=== PATIENT | male | born 1955 | race Caucasian/White ===

== ENCOUNTER 2019-03-20 17:56 | Emergency (ER) | payer OTHER, BC ==
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
[2019-03-20 19:54] VITALS: BP 135/79; PULSE 64; RESP 18; TEMP 97.9
== END 2019-03-20 19:54 | disposition home or self-care (01) ==
LOC: EC 17:56
DX: Z04.1 Encounter for examination and observation following transport accident (principal); Z91.018 Allergy to other foods
CPT/HCPCS: 70450; 71046; 72125; 99285

== ENCOUNTER 2019-06-03 21:15 | Emergency (ER) | payer BC ==
[2019-06-03 21:19] VITALS: TEMP 98.6
[2019-06-03 21:42] LABS: Basophils # (A) 0.1 k/uL (0-0.2); Basophils % (A) 1 %; Eosinophils # (A) 0.2 k/uL (0-0.7); Eosinophils % (A) 2 %; HCT 45.1 % (39.0-53.0); HGB 16.6 gm/dL (13.0-17.5); Lymphocytes # (A) 3.3 k/uL (1.0-4.8); Lymphocytes % (A) 40 %; MCH 33.9 pg (25.0-35.0); MCHC 36.7 g/dL (31.0-37.0); MCV 92.2 fL (80.0-100.0); Mean Platelet Volume 6.6; Monocytes # (A) 0.6 k/uL (0-1.0); Monocytes % (A) 7 %; Neutrophils # (A) 3.9 k/uL (1.3-7.7); Neutrophils % (A) 47 %; Platelet Count 258 k/uL (150-450); RBC 4.89 m/uL (4.30-5.90); RDW 12.1 % (11.5-15.5); WBC 8.4 k/uL (3.8-10.6)
[2019-06-03 21:50] LABS: Partial Thromboplastin Time 24.2 sec (22.0-30.0); Prothrombin Time 10.3 sec (9.0-12.0)
[2019-06-03 21:53] LABS: Albumin 4.6 g/dL (3.5-5.0); Calcium 10.1 mg/dL (8.4-10.2); Potassium 4.6 mmol/L (3.5-5.1); Total Bilirubin 0.4 mg/dL (0.2-1.3); Total Protein 7.6 g/dL (6.3-8.2)
--- NOTE | 2019-06-03 21:57 | XR ---
EXAMINATION TYPE: XR chest 2V DATE OF EXAM: 06/03/2019 COMPARISON: 03/20/2019 INDICATION: Dysrhythmia TECHNIQUE: Frontal and lateral views of the chest are obtained. FINDINGS: The heart size is normal. The pulmonary vasculature is normal. The lungs are clear. IMPRESSION: 1. No acute pulmonary process.
--- NOTE | 2019-06-03 23:26 | ED ---
General Adult HPI - General Source: patient, RN notes reviewed, old records reviewed Mode of arrival: wheelchair Limitations: no limitations <Gideon Angela - Last Filed: 06/04/19 22:25> <Brian Garnica - Last Filed: 06/06/19 08:16> - General Chief complaint: Arrhythmia/Palpitations Stated complaint: Palpitations Time Seen by Provider: 06/03/19 21:21 - History of Present Illness Initial comments: 63-year-old male patient with the chief complaint of heart palpitations. Patient reports that approximately one hour prior to presentation feels that his heart was pounding, he began sweating. Patient denies any chest pain. Patient reports that he loses possibly because he was exposed to tomato plant leads whic h often causes him to get flushed and hot. Patient reports the palpitations have resolved, however does still feel warm. Denies other complaints. Systemic: Pt denies fatigue, fever/chills, rash. Pt denies weakness, night sweats, weight loss. Neuro: Pt denies headache, visual disturbances, syncope or pre-syncope. HEENT: Pt denies ocular discharge or irritation, otalgia, rhinorrhea, pharyngitis or notable lymphadenopathy. Cardiopulmonary: Pt denies chest pain, SOB, heart palpitations, dyspnea on exertion. Abdominal/GI: Pt denies abdominal pain, n/v/d. : Pt denies dysuria, burning w/ urination, frequency/urgency. Denies new onset urinary or bowel incontinence. MSK: Pt denies myalgia, loss of strength or function in extremities. Neuro: Pt denies new onset weakness, paresthesias. (Gideon Angela) - Related Data Home Medications Medication Instructions Recorded Confirmed Aspirin EC [Ecotrin Low Dose] 81 mg PO DAILY 06/03/19 06/03/19 Atorvastatin [Lipitor] 10 mg PO HS 06/03/19 06/03/19 Baclofen 5 mg PO BID PRN 06/03/19 06/03/19 Cetirizine HCl [Zyrtec] 10 mg PO DAILY 06/03/19 06/03/19 Lisinopril [Zestril] 40 mg PO BID 06/03/19 06/03/19 Memantine [Namenda] 10 mg PO BID 06/03/19 06/03/19 amLODIPine [Norvasc] 5 mg PO DAILY 06/03/19 06/03/19 metFORMIN HCL [Glucophage] 500 mg PO BID 06/03/19 06/03/19 Allergies Allergy/AdvReac Type Severity Reaction Status Date / Time Yeast AdvReac Nausea & Verified 06/03/19 21:44 Vomiting pineapple AdvReac Nausea & Uncoded 06/03/19 21:19 Vomiting Review of Systems ROS Other: All systems not noted in ROS Statement are negative. <Gideon Angela - Last Filed: 06/04/19 22:25> ROS Other: All systems not noted in ROS Statement are negative. <Brian Garnica - Last Filed: 06/06/19 08:16> ROS Statement: Those systems with pertinent positive or pertinent negative responses have been documented in the HPI. Past Medical History Past Medical History: Hyperlipidemia, Hypertension History of Any Multi-Drug Resistant Organisms: None Reported Past Surgical History: No Surgical Hx Reported Past Psychological History: No Psychological Hx Reported Smoking Status: Never smoker Past Alcohol Use History: Occasional Past Drug Use History: None Reported <Gideon Angela - Last Filed: 06/04/19 22:25> General Exam Limitations: no limitations <Gideon Angela - Last Filed: 06/04/19 22:25> - General Exam Comments Initial Comments: Constitutional: NAD, AOX3, Pt has pleasant affect. HEENT: NC/AT, trachea midline, neck supple, no lymphadenopathy. Posterior pharynx non erythematous, without exudates. External ears appear normal, without discharge. Mucous membranes moist. Eyes PERRLA, EOM intact. There is no scleral icterus. No pallor noted. Cardiopulmonary: RRR, no murmurs, rubs or gallops, no JVD noted. Lungs CTAB in anterior and posterior tran. No peripheral edema. Abdominal exam: Abdomen soft and non-distended. Abdomen non-tender to palpation in all 4 quadrants. Bowel sounds active in LLQ. No hepatosplenomegaly. No ecchymosis Neuro: CN II-XII grossly intact. No nuchal rigidity. No raccon eyes, no navarro sign, no hemotympanum. No cervical spinal tenderness. MSK: No posterior calf tenderness bilaterally, homans sign negative bilaterally. Posterior tibialis and radial pulse +2 bilaterally. Sensation intact in upper and lower extremities. Full active ROM in upper and lower extremities, 5/5 stregnth. (Gideon Angela) Course Vital Signs 06/03/19 06/03/19 06/04/19 21:17 21:35 00:19 Temperature 98.6 F Pulse Rate 80 69 Pulse Rate [ 76 Health Benefits Specialist ] Respiratory 18 16 Rate Blood Pressure 152/82 142/80 O2 Sat by Pulse 97 96 Oximetry 06/04/19 01:46 Temperature Pulse Rate 65 Pulse Rate [ Health Benefits Specialist ] Respiratory 18 Rate Blood Pressure 144/85 O2 Sat by Pulse 96 Oximetry Medical Decision Making - Lab Data Result diagrams: 06/03/19 21:30 06/03/19 21:30 - EKG Data -: EKG Interpreted by Me (and Dr. Day) <Gideon Angela - Last Filed: 06/04/19 22:25> - Lab Data Result diagrams: 06/03/19 21:30 06/03/19 21:30 <Brian Garnica - Last Filed: 06/06/19 08:16> - Medical Decision Making 63-year-old male patient with the chief complaint of heart palpitations. Patient reports that approximately one hour prior to presentation feels that his heart was pounding, he began sweating. Patient denies any chest pain. Patient reports that he loses possibly because he was exposed to tomato plant leads which often causes him to get flushed and hot. Patient reports the palpitations have resolved, however does still feel warm. Denies other complaints. Patient was sent still, physical exampathology. EKG not concerning for acute ischemia. Laboratory investigations revealed mildly decreased kidney function, otherwise noncompressive. Troponin negative. Patient signout to attending physician Dr. Day pending repeat troponin. Dr. Rodriguez repeat troponin was negative. Patient was discharged without incident. Will follow up with primary care provider and cardologist tomorrow. (Gideon Angela) I saw this patient in conjunction with the physician automotive parts counter assistant. I performed independent history and physical exam. Agree with case management. (Brian Garnica) - Lab Data Lab Results 06/03/19 06/03/19 06/03/19 Range/Units 21:30 21:30 21:30 WBC 8.4 (3.8-10.6) k/uL RBC 4.89 (4.30-5.90) m/uL Hgb 16.6 (13.0-17.5) gm/dL Hct 45.1 (39.0-53.0) % MCV 92.2 (80.0-100.0) fL MCH 33.9 (25.0-35.0) pg MCHC 36.7 (31.0-37.0) g/dL RDW 12.1 (11.5-15.5) % Plt Count 258 (150-450) k/uL Neutrophils % 47 % Lymphocytes % 40 % Monocytes % 7 % Eosinophils % 2 % Basophils % 1 % Neutrophils # 3.9 (1.3-7.7) k/uL Lymphocytes # 3.3 (1.0-4.8) k/uL Monocytes # 0.6 (0-1.0) k/uL Eosinophils # 0.2 (0-0.7) k/uL Basophils # 0.1 (0-0.2) k/uL PT 10.3 (9.0-12.0) sec INR 1.0 (<1.2) APTT 24.2 (22.0-30.0) sec Sodium 140 (137-145) mmol/L Potassium 4.6 (3.5-5.1) mmol/L Chloride 103 (98-107) mmol/L Carbon Dioxide 27 (22-30) mmol/L Anion Gap 10 mmol/L BUN 16 (9-20) mg/dL Creatinine 1.27 H (0.66-1.25) mg/dL Est GFR (CKD-EPI)AfAm 70 (>60 ml/min/1.73 sqM) Est GFR (CKD-EPI)NonAf 61 (>60 ml/min/1.73 sqM) Glucose 119 H (74-99) mg/dL Calcium 10.1 (8.4-10.2) mg/dL Magnesium 2.0 (1.6-2.3) mg/dL Total Bilirubin 0.4 (0.2-1.3) mg/dL AST 33 (17-59) U/L ALT 34 (21-72) U/L Alkaline Phosphatase 104 (38-126) U/L Troponin I (0.000-0.034) ng/mL Total Protein 7.6 (6.3-8.2) g/dL Albumin 4.6 (3.5-5.0) g/dL 06/03/19 06/04/19 Range/Units 21:30 00:30 WBC (3.8-10.6) k/uL RBC (4.30-5.90) m/uL Hgb (13.0-17.5) gm/dL Hct (39.0-53.0) % MCV (80.0-100.0) fL MCH (25.0-35.0) pg MCHC (31.0-37.0) g/dL RDW (11.5-15.5) % Plt Count (150-450) k/uL Neutrophils % % Lymphocytes % % Monocytes % % Eosinophils % % Basophils % % Neutrophils # (1.3-7.7) k/uL Lymphocytes # (1.0-4.8) k/uL Monocytes # (0-1.0) k/uL Eosinophils # (0-0.7) k/uL Basophils # (0-0.2) k/uL PT (9.0-12.0) sec INR (<1.2) APTT (22.0-30.0) sec Sodium (137-145) mmol/L Potassium (3.5-5.1) mmol/L Chloride (98-107) mmol/L Carbon Dioxide (22-30) mmol/L Anion Gap mmol/L BUN (9-20) mg/dL Creatinine (0.66-1.25) mg/dL Est GFR (CKD-EPI)AfAm (>60 ml/min/1.73 sqM) Est GFR (CKD-EPI)NonAf (>60 ml/min/1.73 sqM) Glucose (74-99) mg/dL Calcium (8.4-10.2) mg/dL Magnesium (1.6-2.3) mg/dL Total Bilirubin (0.2-1.3) mg/dL AST (17-59) U/L ALT (21-72) U/L Alkaline Phosphatase (38-126) U/L Troponin I <0.012 <0.012 (0.000-0.034) ng/mL Total Protein (6.3-8.2) g/dL Albumin (3.5-5.0) g/dL - EKG Data EKG Comments: Ventricular rate 76,. Full 148, QRS 82, QT/QTC 384 shows 432. Normotensive, anterior infarct age interment. Normal EKG. No concern for acute ischemia. (Gideon Angela) Disposition Is patient prescribed a controlled substance at d/c from ED?: No <Gideon Angela - Last Filed: 06/04/19 22:25> <Brian Garnica - Last Filed: 06/06/19 08:16> Clinical Impression: Heart palpitations Disposition: HOME SELF-CARE Condition: Stable Instructions (If sedation given, give patient instructions): Heart Palpitations (ED) Additional Instructions: Patient to adhere to previously discussed treatment plan and will take medication(s) as directed. Patient to follow up with PCP in 1-2 days. Patient to return to ED if symptoms do not improve. Follow up with primary care provider and oil well cable tool driller tomorrow, return to ER if condition worsens. Referrals: Cornel Reddy MD [Primary Care Provider] - 1-2 days Edil Mauricio MD [STAFF PHYSICIAN] - 1-2 days
[2019-06-04 01:47] VITALS: BP 144/85; PULSE 65; RESP 18
== END 2019-06-04 02:07 | disposition home or self-care (01) ==
LOC: EC 21:15
DX: R00.2 Palpitations (principal); R94.4 Abnormal results of kidney function studies; E78.5 Hyperlipidemia, unspecified; I10 Essential (primary) hypertension; Z79.82 Long term (current) use of aspirin; Z79.84 Long term (current) use of oral hypoglycemic drugs; Z79.899 Other long term (current) drug therapy; Z91.018 Allergy to other foods
CPT/HCPCS: 36415; 71046; 80053; 83735; 84484; 85025; 85610; 85730; 93005; 99285

== ENCOUNTER 2022-09-02 13:02 | Inpatient (IN) | payer MEDICARE, BC ==
--- NOTE | 2022-09-02 14:49 | XR ---
EXAMINATION TYPE: XR chest 1V DATE OF EXAM: 09/02/2022 COMPARISON: 06/03/2019 INDICATION: Presurgical clearance TECHNIQUE: Single frontal view of the chest is obtained. FINDINGS: The heart size is normal. The pulmonary vasculature is normal. The lungs are clear. Neck chain is present during the exam IMPRESSION: 1. No acute pulmonary process.
[2022-09-02] MEDS ORDERED: HYDROmorphone 0.5 MG/0.5 ML SYRINGE IVP STA ×2 (14:54→17:19)
--- NOTE | 2022-09-02 14:57 | XR ---
EXAMINATION TYPE: XR Hip RT and AP Pelvis DATE OF EXAM: 09/02/2022 2:52 PM INDICATION: Patient age:Male; 67 years old; Reason for study: fall rotation right leg unable to bear weight; COMPARISON: None. TECHNIQUE: The right hip was examined in the frontal and lateral projections and a AP pelvis. FINDINGS: Acute fracture of the right proximal femur with varus angulation. Multilevel disc degenerat ion changes. No additional fractures. Mild osteophyte formation acetabulum bilaterally. IMPRESSION: Right femoral neck fracture with varus angulation.
[2022-09-02 15:57] LABS: Basophils % (A) 0 %; Eosinophils # (A) 0.1 k/uL (0-0.7); Eosinophils % (A) 1 %; HCT 45.4 % (39.0-53.0); HGB 15.8 gm/dL (13.0-17.5); Lymphocytes # (A) 1.4 k/uL (1.0-4.8); Lymphocytes % (A) 10 %; MCH 32.7 pg (25.0-35.0); MCHC 34.8 g/dL (31.0-37.0); MCV 94.1 fL (80.0-100.0); Mean Platelet Volume 7.5; Monocytes # (A) 0.5 k/uL (0-1.0); Monocytes % (A) 4 %; Neutrophils % (A) 85 %; Platelet Count 234 k/uL (150-450); RBC 4.83 m/uL (4.30-5.90); WBC 14.1 k/uL (3.8-10.6)
[2022-09-02 16:09] LABS: ALT 34 U/L (4-49); AST 33 U/L (17-59); African American GFR (CKD) >90 (>60 ml/min/1.73 sqM); Albumin 4.7 g/dL (3.5-5.0); Alkaline Phosphatase 108 U/L (38-126); Anion Gap 10 mmol/L; Blood Urea Nitrogen 14 mg/dL (9-20); Calcium 9.8 mg/dL (8.4-10.2); Carbon Dioxide 24 mmol/L (22-30); Chloride 100 mmol/L (98-107); Glucose 152 mg/dL (74-99); Non-African American GFR(CKD) >90 (>60 ml/min/1.73 sqM); Potassium 4.3 mmol/L (3.5-5.1); Sodium 134 mmol/L (137-145); Total Bilirubin 0.8 mg/dL (0.2-1.3); Total Protein 7.5 g/dL (6.3-8.2)
[2022-09-02 16:23] LABS: Partial Thromboplastin Time 22.5 sec (22.0-30.0); Prothrombin Time 10.5 sec (9.0-12.0)
[2022-09-02] MEDS ORDERED: KETOROLAC 15 MG/ML 1 ML VIAL IVP STA (17:19)
--- NOTE | 2022-09-02 18:15 | P.HPOR ---
History of Present Illness H&P Date: 09/02/22 Chief Complaint: Right hip pain status post fall Patient is a pleasant 67-year-old male who seen and examined today at bedside in the emergency room. 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 He was at [employer] today and slipped on some ice outside door. Some people are able to help him up and he actually drove himself home in his truck. However he was not able to make it in the house and his brought him to the emergency room for evaluation. In the emergency room he is found have a right hip femoral neck displaced fracture. At the time of his fall he did not have any headaches or shortness of breath. He denies any loss of consciousness. He denied any problems with his hip or his leg in the past. He said he fell hard onto his right side and had sudden and new with pain at his right hip. He denies numbness tingling in his feet or toes. Denies any changes in bowel bladder function. Denies any neck pain or upper extremity pain. Denies abdominal pain or spine pain. 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 Review of Systems As stated per HPI. He denies any chest pain short of breath. Denies any neck pain headaches or loss consciousness. Denies abdominal pain or back pain. He admits to only pain at his right hip and severe pain whenever he tries to move the right leg. Denies numbness tingling in his right lower extremity. Denies changes in bowel bladder function. There is a left lower extremity pain. Denies any upper extremity pain. Past Medical History Past Medical History: Diabetes Mellitus, Hyperlipidemia, Hypertension History of Any Multi-Drug Resistant Organisms: None Reported Past Surgical History: No Surgical Hx Reported Past Psychological History: No Psychological Hx Reported Past Alcohol Use History: Occasional Past Drug Use History: None Reported Medications and Allergies Home Medications Medication Instructions Recorded Confirmed Type Aspirin EC [Ecotrin Low Dose] 81 mg PO HS 06/03/19 09/02/22 History Cetirizine HCl [Zyrtec] 10 mg PO DAILY 06/03/19 09/02/22 History amLODIPine [Norvasc] 5 mg PO DAILY 06/03/19 09/02/22 History lisinopriL [Zestril] 20 mg PO DAILY 06/03/19 09/02/22 History metFORMIN HCL [Glucophage] 500 mg PO QAM 06/03/19 09/02/22 History Ascorbic Acid [Vitamin C] 1,000 mg PO DAILY 09/02/22 09/02/22 History Atorvastatin [Lipitor] 20 mg PO HS 09/02/22 09/02/22 History Cholecalciferol (Vitamin D3) 75 mcg PO DAILY 09/02/22 09/02/22 History [Vitamin D3 (3000 Iu)] Multivitamins, Thera [Multivitamin 1 tab PO DAILY 09/02/22 09/02/22 History (formulary)] Zinc Sulfate 50 mg PO DAILY 09/02/22 09/02/22 History allopurinoL 300 mg PO DAILY 09/02/22 09/02/22 History metFORMIN HCL [Glucophage] 1,000 mg PO HS 09/02/22 09/02/22 History Allergies Allergy/AdvReac Type Severity Reaction Status Date / Time peanut Allergy Unknown Verified 09/02/22 18:01 Milk Containing Products AdvReac Nausea & Verified 09/02/22 18:01 [Dairy] Vomiting pineapple AdvReac Nausea & Verified 09/02/22 18:01 Vomiting Yeast AdvReac Nausea & Verified 09/02/22 18:01 Vomiting Physical Examination Osteopathic Statement: *. No significant issues noted on an osteopathic structural exam other than those noted in the History and Physical/Consult. - Hip right Gait: other (He is unable to get out of bed. He is unable to move his right leg without severe pain in his right hip. He is able to dorsiflex plantar flex at his ankle foot and toes.) Tenderness with palpation: anterior (There is no open wounds lacerations or abrasions. He has anterior and lateral pain in his hip. His thighs soft and nontender.) Pain with motion: internal rotation and hip flexion (There is pain with any motion of the right hip. He'll hold his hip flexed and externally rotated. Sensation is intact at his lower extremity throughout. Calf and thighs are soft nontender) Results - Labs Labs: Abnormal Lab Results - Last 24 Hours (Table) 09/02/22 09/02/22 Range/Units 15:42 15:42 WBC 14.1 H (3.8-10.6) k/uL Neutrophils # 12.0 H (1.3-7.7) k/uL Sodium 134 L (137-145) mmol/L Glucose 152 H (74-99) mg/dL H & H 09/02/22 Range/Units 15:42 Hgb 15.8 (13.0-17.5) gm/dL Hct 45.4 (39.0-53.0) % Coagulation 09/02/22 Range/Units 14:54 INR 1.0 (<1.2) Result Diagrams: 09/02/22 15:42 09/02/22 15:42 - Diagnostic results Hip x-ray: report reviewed, image reviewed (Hip x-rays and pelvis x-rays and report are reviewed. It shows a displaced right femoral neck fracture.) Hip MRI: report reviewed Assessment and Plan Assessment: Acute traumatic right hip femoral neck fracture with displacement closed neurologically intact Right hip pain status post fall History of diabetes, [id number] History of hypertension Plan: Acute traumatic right hip femoral neck fracture with displacement closed neurologically intact Right hip pain status post fall History of diabetes, [id number] History of hypertension The patient has a new acute injury due to a traumatic fall. He has a displaced right hip femoral neck fracture. With the displacement and the location of fracture is not likely to heal well on its own and I think the best course of treatment for him would be to pursue a right hip hemiarthroplasty. He has good space at his right hip joint and his cartilage appears to be intact. He did not have any antecedent pain. He appears to be neurologically intact without any other injury. I think that we could plan on surgical intervention tomorrow on for right hip hemiarthroplasty. The patient will need medical evaluation and clearance. He normally sees Dr. leahy and we will have him see him to provide medical management and clearance for surgery tomorrow. We will make the patient nothing by mouth after midnight. He will be on bedrest. We will try to help control his pain as best possible. I asked him about placing a Betancur catheter and reflected GI to use just a urinal in bed for urination for now. I discussed the nature of his injury with him at length. I discussed the risk of occasions alternatives and benefits of the injury and the different interventions. We discussed the risks, occasions of surgery including but not limited to the risk of bleeding risk of infection risk and need for further surgery risk of decreased loss of motion loss function harder failure nerve damage as well as the fact that surgery may not alleviate his symptoms. He may have altered level of independence and activity and weightbearing due to the injury. He may have difficulty with his work and employment after surgery. I explained all of this to him and answered his and his 's questions best my ability in a language that they can understand and they are agreeable to proceed with surgical intervention. They will sign informed consent.
--- NOTE | 2022-09-02 18:22 | ED ---
General Adult HPI - General Chief complaint: Fall Stated complaint: fall - lt hip pain Time Seen by Provider: 09/02/22 14:37 Source: patient, RN notes reviewed, old records reviewed Mode of arrival: wheelchair Limitations: no limitations - History of Present Illness Initial comments: This is a 67-year-old male who I initially saw in the waiting room. I also checked his x-ray out before he was in the room. Patient complains that he is having right hip pain patient states she was in apartment [employer] and fell and he hurt his right hip patient states he also hit his elbow but has full range of motion and he doesn't have any significant pain there. Patient denies any head or neck. Patient denies any other injury at this time. Patient was not having chest pain difficulty breathing or feeling any palpitations at the time he did not have any near syncopal episode he states he just misstepped and went off the curb and tumbled over. - Related Data Home Medications Medication Instructions Recorded Confirmed Aspirin EC [Ecotrin Low Dose] 81 mg PO HS 06/03/19 09/02/22 Cetirizine HCl [Zyrtec] 10 mg PO DAILY 06/03/19 09/02/22 amLODIPine [Norvasc] 5 mg PO DAILY 06/03/19 09/02/22 lisinopriL [Zestril] 20 mg PO DAILY 06/03/19 09/02/22 metFORMIN HCL [Glucophage] 500 mg PO QA 06/03/19 09/02/22 Ascorbic Acid [Vitamin C] 1,000 mg PO DAILY 09/02/22 09/02/22 Atorvastatin [Lipitor] 20 mg PO HS 09/02/22 09/02/22 Cholecalciferol (Vitamin D3) 75 mcg PO DAILY 09/02/22 09/02/22 [Vitamin D3 (3000 Iu)] Multivitamins, Thera [Multivitamin 1 tab PO DAILY 09/02/22 09/02/22 (formulary)] Zinc Sulfate 50 mg PO DAILY 09/02/22 09/02/22 allopurinoL 300 mg PO DAILY 09/02/22 09/02/22 metFORMIN HCL [Glucophage] 1,000 mg PO HS 09/02/22 09/02/22 Allergies Allergy/AdvReac Type Severity Reaction Status Date / Time peanut Allergy Unknown Verified 09/02/22 18:01 Milk Containing Products AdvReac Nausea & Verified 09/02/22 18:01 [Dairy] Vomiting pineapple AdvReac Nausea & Verified 09/02/22 18:01 Vomiting Yeast AdvReac Nausea & Verified 09/02/22 18:01 Vomiting Review of Systems ROS Statement: Those systems with pertinent positive or pertinent negative responses have been documented in the HPI. ROS Other: All systems not noted in ROS Statement are negative. Past Medical History Past Medical History: Hyperlipidemia, Hypertension History of Any Multi-Drug Resistant Organisms: None Reported Past Surgical History: No Surgical Hx Reported Past Psychological History: No Psychological Hx Reported Past Alcohol Use History: Occasional Past Drug Use History: None Reported General Exam - General Exam Comments Initial Comments: GENERAL: Patient is well-developed and well-nourished. Patient is nontoxic and well- hydrated and is in moderate distress. ENT: Neck is soft and supple. No significant lymphadenopathy is noted. Oropharynx is clear. Moist mucous membranes. Neck has full range of motion without eliciting any pain. EYES: The sclera were anicteric and conjunctiva were pink and moist. Extraocular movements were intact and pupils were equal round and reactive to light. Eyelids were unremarkable. PULMONARY: Unlabored respirations. Good breath sounds bilaterally. No audible rales rhonchi or wheezing was noted. CARDIOVASCULAR: There is a regular rate and rhythm without any murmurs gallops or rubs. ABDOMEN: Soft and nontender with normal bowel sounds. SKIN: Skin is clear with no lesions or rashes and otherwise unremarkable. NEUROLOGIC: Patient is alert and oriented x3. Cranial nerves II through XII are grossly intact. Motor and sensory are also intact. Normal speech, volume and content. Symmetrical smile. MUSCULOSKELETAL: Patient is unable to move at the right hip secondary to pain. Patient's leg also seems shortened. Patient does have good pulses. LYMPHATICS: No significant lymphadenopathy is noted PSYCHIATRIC: Normal psychiatric evaluation. Limitations: no limitations Course Vital Signs 09/02/22 09/02/22 09/02/22 13:22 15:59 17:45 Temperature 97 F L Pulse Rate 73 91 79 Respiratory 20 18 18 Rate Blood Pressure 153/79 148/61 163/78 O2 Sat by Pulse 96 98 96 Oximetry 09/02/22 18:40 Temperature Pulse Rate 84 Respiratory 16 Rate Blood Pressure 154/78 O2 Sat by Pulse 94 L Oximetry Medical Decision Making - Medical Decision Making Was pt. sent in by a medical professional or institution? @ -No Did you speak to anyone other than the patient for history? @ - Did you review nursing and triage notes? @ -Agree with nursing notes Were old charts reviewed? @ -No Differential Diagnosis? @ -Hip fracture, pelvis fracture, contusion, hip strain, bursitis EKG interpreted by me (3pts min.)? @ -EKG was interpreted by me and shows a sinus rhythm at 89 bpm HI interval is 155 QRS is 90 QT interval 340 QTC is 395. Patient's EKG shows no ST segment elevation or depression. X-rays interpreted by me (1pt min.)? @ -Respiratory by myself. X-ray of hip and pelvis show a right femoral neck fracture. CT interpreted by me (1pt min.)? @ -No U/S interpreted by me (1pt. min.)? @ -No What testing was considered but not performed? (CT, X-rays, U/S, labs)? Why? @ -No What meds were considered but not given? Why? @ -No Did you discuss the management of the patient with other professionals? @ -I spoke with Dr. Castro about admitting the patient he agreed with the patient I admitted the patient wrote admitting orders Did you reconcile home meds? @ -No Was smoking cessation discussed for >3mins.? @ -No Was critical care preformed (if so, how long)? @ -[none] Were there social determinants of health that impacted care today? How? (Homelessness, low income, unemployed, alcoholism, drug addiction, transportation, low edu. Level, literacy, decrease access to med. care, skilled nursing, rehab)? @ -No Was there de-escalation of care discussed even if they declined? (Discuss DNR or withdrawal of care, Hospice)? @ -No What co-morbidities impacted this encounter? (DM, HTN, Smoking, COPD, CAD, Cancer, CVA, Hep., AIDS, mental health diagnosis, sleep apnea, morbid obesity)? @ -No Was patient admitted / discharged? @ -Patient will be admitted. Patient had neck showed that showed a right femoral neck fracture spoke with Dr. Lowe he agreed to admit the patient. Undiagnosed new problem with uncertain prognosis? @ -No Drug Therapy requiring intensive monitoring for toxicity (Heparin, Nitro, Insulin, Cardizem)? @ -Known Were any procedures done? @ -No Diagnosis/symptom? @ -Right femoral neck fracture Acute, or Chronic, or Acute on Chronic? @ -Acute Uncomplicated (without systemic symptoms) or Complicated (systemic symptoms)? @ -Uncomplicated Side effects of treatment? @ -None Exacerbation, Progression, or Severe Exacerbation] @ -None Poses a threat to life or bodily function? @ -No Patient requests orthopedic Associates and that is why Dr. Lowe was contacted - Lab Data Result diagrams: 09/02/22 15:42 09/02/22 15:42 Lab Results 09/02/22 09/02/22 09/02/22 Range/Units 14:54 15:42 15:42 WBC 14.1 H (3.8-10.6) k/uL RBC 4.83 (4.30-5.90) m/uL Hgb 15.8 (13.0-17.5) gm/dL Hct 45.4 (39.0-53.0) % MCV 94.1 (80.0-100.0) fL MCH 32.7 (25.0-35.0) pg MCHC 34.8 (31.0-37.0) g/dL RDW 12.0 (11.5-15.5) % Plt Count 234 (150-450) k/uL MPV 7.5 Neutrophils % 85 % Lymphocytes % 10 % Monocytes % 4 % Eosinophils % 1 % Basophils % 0 % Neutrophils # 12.0 H (1.3-7.7) k/uL Lymphocytes # 1.4 (1.0-4.8) k/uL Monocytes # 0.5 (0-1.0) k/uL Eosinophils # 0.1 (0-0.7) k/uL Basophils # 0.0 (0-0.2) k/uL PT 10.5 (9.0-12.0) sec INR 1.0 (<1.2) APTT 22.5 (22.0-30.0) sec Sodium 134 L (137-145) mmol/L Potassium 4.3 (3.5-5.1) mmol/L Chloride 100 (98-107) mmol/L Carbon Dioxide 24 (22-30) mmol/L Anion Gap 10 mmol/L BUN 14 (9-20) mg/dL Creatinine 0.83 (0.66-1.25) mg/dL Est GFR (CKD-EPI)AfAm >90 (>60 ml/min/1.73 sqM) Est GFR (CKD-EPI)NonAf >90 (>60 ml/min/1.73 sqM) Glucose 152 H (74-99) mg/dL Calcium 9.8 (8.4-10.2) mg/dL Total Bilirubin 0.8 (0.2-1.3) mg/dL AST 33 (17-59) U/L ALT 34 (4-49) U/L Alkaline Phosphatase 108 (38-126) U/L Total Protein 7.5 (6.3-8.2) g/dL Albumin 4.7 (3.5-5.0) g/dL Disposition Clinical Impression: Fall, Femoral neck fracture Disposition: ADMITTED IP TO THIS [facility] Time of Disposition: 18:00
[2022-09-02] MEDS: HYDROcodone/APAP 5-325MG 1 EACH TAB PO PRN (20:15)
[2022-09-02] MEDS: ATORVASTATIN 20 MG TAB PO SCH (20:17)
[2022-09-02] MEDS: HYDROmorphone 1 MG/ML 1 ML SYRINGE IVP PRN (20:17)
[2022-09-02] MEDS: metFORMIN 500 MG TAB PO SCH (20:19)
[2022-09-02] MEDS: D5-0.45% NACL WITH KCL 20MEQ/L 1,000 ML IV SCH (22:57)
[2022-09-03] MEDS: HYDROmorphone 1 MG/ML 1 ML SYRINGE IVP PRN ×4 (00:52→21:57)
[2022-09-03] MEDS: HYDROcodone/APAP 5-325MG 1 EACH TAB PO PRN ×4 (00:53→18:40)
[2022-09-03] MEDS ORDERED: TRANEXAMIC ACID IN NACL,ISO-OS 1,000 MG in SALINE 1 100ML.BAG IVPB PRN (05:00)
[2022-09-03] MEDS: D5-0.45% NACL WITH KCL 20MEQ/L 1,000 ML IV SCH ×2 (07:07→15:18)
[2022-09-03 07:14] LABS: Glucose,Whole Blood 163 mg/dL (70-110)
[2022-09-03] MEDS ORDERED: LACTATED RINGERS 1,000 ML IV ONE ×4 (07:59→11:19)
[2022-09-03] MEDS ORDERED: MIDAZOLAM 2 MG/2 ML VIAL IVP ONE (08:14)
[2022-09-03 08:17] LABS: Glucose,Whole Blood 169 mg/dL (70-110)
[2022-09-03] MEDS ORDERED: ONDANSETRON 4 MG/2 ML VIAL ONE (08:27)
[2022-09-03] MEDS ORDERED: ONDANSETRON 4 MG/2 ML VIAL IVP ONE (08:27)
--- NOTE | 2022-09-03 08:28 | P.PN ---
Progress Note - Text Progress Note Date: 09/03/22 The patient is seen and examined this morning at bedside. We again discussed the nature of his injury and the closed treatment options. We discussed the risk, patient's alternatives and benefits of surgery in terms of his right hip femoral neck fracture. We discussed the risk of bleeding risk and infection risk and need for further surgery risk of change in his overall gait dysfunction dislocation possible need for further surgery as well as fact that surgery may not alleviate his symptoms. Patient understands these issues and would like to proceed with surgery. Patient was seen by anesthesia with Dr. Velazquez. Dr. Velazquez feels comfortable with providing clearance for surgery with this patient. We will plan to proceed with surgical intervention this morning.
[2022-09-03] MEDS ORDERED: MIDAZOLAM 2 MG/2 ML VIAL ONE (08:46)
[2022-09-03] MEDS ORDERED: DEXAMETHASONE SOD PHOSPHATE 4 MG/ML 1 ML VIAL ONE (08:46)
[2022-09-03] MEDS ORDERED: KETAMINE 10 MG/ML 20 ML VIAL ONE (08:46)
[2022-09-03] MEDS ORDERED: ROPIVACAINE 5 MG/ML 30 ML VIAL ONE (08:46)
[2022-09-03] MEDS ORDERED: PROPOFOL 10 MG/ML 20 ML VIAL IV ONE (08:46)
[2022-09-03] MEDS ORDERED: TRANEXAMIC ACID IN NACL,ISO-OS 1,000 MG/100 ML BAG ONE (08:46)
[2022-09-03] MEDS ORDERED: PHENYLEPHRINE-0.9% NACL SYG 1,000 MCG/10 ML SYRINGE ONE (08:46)
[2022-09-03] MEDS ORDERED: TRANEXAMIC ACID 1,000 MG/10 ML VIAL MISCELLANE ONE (09:09)
[2022-09-03] MEDS ORDERED: TRANEXAMIC ACID 1,000 MG in SODIUM CHLORIDE 0.9% 100 ML IVPB ONE (09:09)
[2022-09-03] MEDS ORDERED: MAGNESIUM HYDROXIDE 2,400 MG/10 ML CUP PO PRN ×2 (11:19→11:20)
[2022-09-03] MEDS ORDERED: BENZOCAINE/MENTHOL LOZENG 1 EACH LOZENGE MUCOUS MEM PRN (11:19)
[2022-09-03] MEDS ORDERED: HYDROmorphone 0.5 MG/0.5 ML SYRINGE IVP PRN (11:19)
[2022-09-03] MEDS ORDERED: NALOXONE 0.4 MG/ML 1 ML VIAL IV PRN (11:20)
[2022-09-03] MEDS ORDERED: ONDANSETRON 4 MG/2 ML VIAL IVP PRN (11:20)
[2022-09-03] MEDS ORDERED: ACETAMINOPHEN TAB 325 MG TAB PO PRN (11:20)
--- NOTE | 2022-09-03 11:31 | P.OP ---
Date of Procedure: 09/03/22 Preoperative Diagnosis: Right hip femoral neck fracture, acute traumatic due to a fall, with displacement Postoperative Diagnosis: Right hip femoral neck fracture, acute traumatic due to a fall, with displacement Anesthesia: spinal Pathology: other (Femoral head to pathology) Condition: stable Disposition: PACU Description of Procedure: Preoperative diagnosis: Right hip femoral neck fracture, acute traumatic due to a fall, with displacement Postoperative diagnosis: Same Procedure: Right Hip hemiarthroplasty Surgeon: Dr. Castro Asst.: Guerita Hinojosa who is present that the entire the case persistence during positioning dissection exposure placement of hardware and closure Anesthesia: Spinal per Dr. Velazquez Estimated blood loss: Approximately 150 mL Components implanted: [employer] hip fracture stem cemented size 2 with a -3 neck and 50 mm Disposition: To recovery room in good stable condition Operative indications The patient sustained a injury and suffered a femoral neck fracture which was displaced and angulated. 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 He is a very pleasant 67-year-old male who was at [employer] and slipped on the ice and fell hard onto his right hip. He had sudden acute pain in his right hip. He had denied any problems with his leg or hip the past. Some people helped him into his truck and he actually drove home but was unable to leave his truck and get in the house and was then talked taken to the hospital by his . He was evaluated in the emergency room and found t o have a right hip femoral neck fracture with displacement due to his fall. We were involved in the case in regard to his hip fracture. After evaluation it was determined that they would be a candidate for hip hemiarthroplasty via surgical intervention. This would give them the best chance of mobilization and ambulation. We discussed the range of treatment options from conservative to surgical. We discussed all the risks, occasions alternatives and benefits of treatments. We discussed the nature of his injury. I discussed the risk of surgery including but not limited to the risk of bleeding risk of infection risk and need for further surgery risk of decreased loss of motion, loss of function hardware failure nerve damage dislocation as well as the fact that surgery may not alleviate his symptoms was explained to him. They elected proceed with surgical intervention. We answered their questions to the best of our ability healing which they can understand. They signed an informed consent. The patient was seen by anesthesia. I had a discussion with Dr. Velazquez who cleared the patient for surgical intervention. Operative summary After obtaining informed consent evaluation by anesthesia, preoperative evaluation and clearance for medical service, the patient was identified and prepped [place] area and the surgical site was marked. There brought to the operating room where the given appropriate anesthesia by the anesthesia department in standard fashion without any complications. Once the anesthesia was established we were able to position the patient. There placed in a lateral decubitus position with the operative side up being careful to pad any bony prominences and pressure points and place a excellent roll appropriately. The airway and C-spine was monitored continuously. Once patient was well positioned lower extremity was prepped and draped in normal standard sterile fashion. An appropriate keystone protocol and timeout was completed and were able to proceed with surgery. At the right hip A curvilinear incision was established over the greater trochanter. Dissection was taken down to the tensor fascia esperanza which was split in line with its fibers and extended proximally into the gluteal fibers. A Charnley retractor was established. The trochanteric bursa was inflamed and removed. I was able to then dissect down off the posterior aspect of the greater trochanter taking the piriformis tendon and the posterior capsule in one full-thickness flap and tacking it with suture. This expose the fracture at the femoral neck which was easily identified. A guide was used to establish the appropriate femoral neck cut and a bone- cutting saw was used to establish the femoral neck cut and good alignment and good position. All the bony fragments were removed. I was then able to use a corkscrew device to remove the femoral head from the acetabulum. Any loose fragments in the acetabulum were removed. The patient is somewhat large and quite muscular and it took some extra dissection over to establish access to the femoral neck and acetabulum. The femoral head was measured for the appropriate size implant and then passed off for pathology. Appropriate retractors were placed and I established a lateral box cut chisel. With this we then started to broach with sequential broaches to the appropriate sized to we had good fit and fill. There is no evidence any fracture in the possible femur. With the appropriate size broach well seated and stable I placed the trial neck and head. There was some soft tissue impingement but once this was positioned and dissected appropriately I was able to provide A gentle reduction was performed to get good reduction. The hip was taken through a good range of motion and found to be stable in the position of sleep and through a range of motion. It had a good shuck test. We were able to then dislocate the trial prosthesis. The broach was found to remain stable. It was then removed. The wound was copiously irrigated and suctioned dry with pulsatile lavage. I prepared the femoral neck and shaft with copious irrigation for preparation for the cement. I was able to use the appropriate implant cement and fill the proximal femoral canal over the top of a bone plug. Had good pressurization within the femoral canal. The appropriate size femoral stem was chosen and positioned and placed in good alignment and good position with excellent fit and fill seated appropriately over the calcar. We held it in place without any impingement until the cement was allowed to cure fully. It was checked and found to be stable. The trunnion was cleaned and dried the femoral head was then positioned over the femoral neck malleted in position checked and found to be stable. The hip prosthesis was then gently reduced back into the acetabulum and found to have excellent position and excellent stability and excellent range of motion with stability. There is no evidence of dislocation or fracture. The wound was copiously irrigated and suctioned dry. We are able to proceed with closure. The piriformis and posterior capsule were reapproximated to the posterior aspect of the greater trochanter with transosseous stitches. The wound was irrigated and suctioned dry. The fascia was closed with #2 Quill for watertight closure. Subcutaneous tissue was irrigated and suctioned dry. Subcu tissues closed with 2-0 Vicryl subcuticular tissue was closed with 30 Quill. Wound is clean and dried and dressed with blue and [place] dressing and Drapes were broken down, the hip was held in stable position, and an abduction pillow was placed. The patient was then transferred back to their hospital bed being careful to maintain the hip and C- spine alignment and airway. Once stable to patient was transferred back to the postanesthesia care unit to be readmitted for pain control and DVT prophylaxis medical management and monitoring and mobilization we will continue follow patient closely throughout their postoperative course.
--- NOTE | 2022-09-03 12:17 | XR ---
EXAMINATION TYPE: XR Hip Limited RT DATE OF EXAM: 09/03/2022 11:55 AM INDICATION: Patient age:Male; 67 years old; Reason for study: Postop right hip hemiarthroplasty; COMPARISON: None. TECHNIQUE: The right hip was examined in the frontal projections. FINDINGS: Post arthroplasty changes, hardware is intact, alignment is appropriate. No evidence of fra cture. Postoperative changes soft tissue. No evidence of any acute osseous pathology or joint disloca tion. IMPRESSION: Total hip arthroplasty with hardware intact and in appropriate alignment. No acute fracture.
[2022-09-03 13:01] LABS: Glucose,Whole Blood 172 mg/dL (70-110)
[2022-09-03] MEDS: CHOLECALCIFEROL 25 MCG (1000 IU) TABLET PO SCH (13:49)
[2022-09-03] MEDS: lisinopriL 20 MG TAB PO SCH (13:49)
[2022-09-03] MEDS: allopurinoL 300 MG TAB PO SCH (13:49)
[2022-09-03] MEDS: LORATADINE 10 MG TAB PO SCH (13:49)
[2022-09-03] MEDS: MULTIVITAMINS, THERA 1 EACH TAB PO SCH (13:49)
[2022-09-03] MEDS: ASCORBIC ACID 500 MG TAB PO SCH (13:49)
[2022-09-03] MEDS: metFORMIN 500 MG TAB PO SCH ×2 (13:49→21:56)
[2022-09-03] MEDS: amLODIPine 5 MG TAB PO SCH (13:49)
[2022-09-03] MEDS: SODIUM CHLORIDE 0.9% 1,000 ML IV SCH (13:50)
[2022-09-03] MEDS: ZINC SULFATE 220 MG CAP PO SCH (13:50)
[2022-09-03 16:07] LABS: Glucose,Whole Blood 264 mg/dL (70-110)
[2022-09-03 16:26] LABS: Basophils % (A) 0 %; Eosinophils % (A) 0 %; HCT 41.8 % (39.0-53.0); HGB 14.4 gm/dL (13.0-17.5); Lymphocytes # (A) 0.6 k/uL (1.0-4.8); Lymphocytes % (A) 5 %; MCHC 34.5 g/dL (31.0-37.0); MCV 95.6 fL (80.0-100.0); Mean Platelet Volume 7.7; Monocytes # (A) 0.5 k/uL (0-1.0); Monocytes % (A) 4 %; Neutrophils # (A) 10.3 k/uL (1.3-7.7); Neutrophils % (A) 90 %; Platelet Count 185 k/uL (150-450); RBC 4.37 m/uL (4.30-5.90); WBC 11.4 k/uL (3.8-10.6)
[2022-09-03 20:44] LABS: Glucose,Whole Blood 197 mg/dL (70-110)
--- NOTE | 2022-09-03 21:40 | P.ANPRN ---
Procedure Note - Anesthesia - Nerve Block Performed Right [place] Single Time Out Performed: Yes Date of Procedure: 09/03/22 Procedure Start Time: 08:13 Procedure Stop Time: 08:18 Location of Patient: PreOp Indication: Acute Post-Operative Pain, Requested by Surgeon Sedation Type: Sedate with meaningful contact maintained Preparation: Sterile Prep Position: Supine Needle Types: Pajunk Needle Gauge: 21 Ultrasound used to visualize needle placement: Yes Ultrasound used to observe medication spread: Yes Blood Aspirated: No Pain Paresthesia on Injection Noted: No Resistance on Injection: Normal Image Stored and Saved: Yes Events: Uneventful and Well Tolerated (ropi .5% 25cc plus dexamethasone 4mg)
[2022-09-03] MEDS: ATORVASTATIN 20 MG TAB PO SCH (21:57)
[2022-09-04] MEDS: HYDROcodone/APAP 5-325MG 1 EACH TAB PO PRN ×5 (00:12→22:27)
[2022-09-04] MEDS: D5-0.45% NACL WITH KCL 20MEQ/L 1,000 ML IV SCH ×3 (00:16→20:00)
[2022-09-04 02:01] LABS: Glucose,Whole Blood 175 mg/dL (70-110)
[2022-09-04] MEDS: SODIUM CHLORIDE 0.9% 1,000 ML IV SCH ×2 (02:17→12:25)
[2022-09-04 03:14] LABS: HCT 40.5 % (39.0-53.0); HGB 14.1 gm/dL (13.0-17.5); MCHC 34.7 g/dL (31.0-37.0); Mean Platelet Volume 7.9; Platelet Count 182 k/uL (150-450); RBC 4.26 m/uL (4.30-5.90); RDW 12.3 % (11.5-15.5); WBC 13.1 k/uL (3.8-10.6)
--- NOTE | 2022-09-04 03:32 | XR ---
EXAMINATION TYPE: XR chest 1V portable DATE OF EXAM: 09/04/2022 COMPARISON: 09/02/2022 HISTORY: Preop TECHNIQUE: Single view FINDINGS: Heart and mediastinum are normal. Lungs are clear. Diaphragms thorax is normal IMPRESSION: Normal chest. No change
[2022-09-04 03:41] LABS: African American GFR (CKD) >90 (>60 ml/min/1.73 sqM); Anion Gap 6 mmol/L; Blood Urea Nitrogen 13 mg/dL (9-20); Calcium 8.7 mg/dL (8.4-10.2); Carbon Dioxide 26 mmol/L (22-30); Chloride 103 mmol/L (98-107); Glucose 188 mg/dL (74-99); Non-African American GFR(CKD) >90 (>60 ml/min/1.73 sqM); Potassium 4.3 mmol/L (3.5-5.1); Sodium 135 mmol/L (137-145)
[2022-09-04] MEDS: HYDROmorphone 1 MG/ML 1 ML SYRINGE IVP PRN ×4 (04:13→20:14)
[2022-09-04 07:13] LABS: Glucose,Whole Blood 202 mg/dL (70-110)
[2022-09-04] MEDS: allopurinoL 300 MG TAB PO SCH (08:15)
[2022-09-04] MEDS: ZINC SULFATE 220 MG CAP PO SCH (08:15)
[2022-09-04] MEDS: SENNOSIDES-DOCUSATE SODIUM 1 EACH TAB PO SCH (08:15)
[2022-09-04] MEDS: ASCORBIC ACID 500 MG TAB PO SCH (08:15)
[2022-09-04] MEDS: amLODIPine 5 MG TAB PO SCH ×2 (08:15→11:03)
[2022-09-04] MEDS: MULTIVITAMINS, THERA 1 EACH TAB PO SCH (08:15)
[2022-09-04] MEDS: lisinopriL 20 MG TAB PO SCH ×3 (08:15→11:13)
[2022-09-04] MEDS: LORATADINE 10 MG TAB PO SCH (08:15)
[2022-09-04] MEDS: CHOLECALCIFEROL 25 MCG (1000 IU) TABLET PO SCH (08:15)
[2022-09-04] MEDS: metFORMIN 500 MG TAB PO SCH ×2 (08:16→20:13)
[2022-09-04 08:25] LABS: Glucose,Whole Blood 227 mg/dL (70-110)
[2022-09-04] MEDS ORDERED: ASPIRIN 325 MG TAB PO SCH (09:00)
--- NOTE | 2022-09-04 09:25 | P.CRDCN ---
History of Present Illness Consult date: 09/04/22 History of present illness: History of Present Illness: The patient is a 67-year-old male with a known history of hypertension, hyperlipidemia and diabetes mellitus last his footing and fell and had a fracture right hip. He underwent surgical intervention by Dr. Castro. Starting last night he was noted to be tachycardic, the patient denies any symptoms of chest discomfort, dyspnea or palpitations. He has no prior history of arrhythmia. He is usually active physically without limitations. According to him he underwent a stress test a few years ago that was unremarkable. He denies any PND, orthopnea or peripheral edema. On the monitor he was noted to be in a trial flutter with 2 to one conduction. Patient is unaware of the arrhythmia. His [id number] score is 3. He has no history of bleeding. He was in sinus mechanism on admission. He has no documented history of atrial flutter or atrial fibrillation in the past according to him. The patient has no history of smoking Medications: Metformin 1 g daily, Norvasc 5 mg daily, Lipitor 20 mg daily, asp irin once a day, lisinopril 20 mg daily Review of Systems: Respiratory: No history of asthma, bronchitis or recent cough. GI: No nausea or vomiting . No history of peptic ulcer disease. No recent GI bleed. : No hematuria or dysuria. Nervous System: No stroke or seizure. Physical Examination: 67-year-old male alert and oriented in mild discomfort from his right leg ,Blood pressure 120/70, Heart rate 150 Head: Normocephalic. Eyes: Sclerae nonicteric. Neck: Good carotid upstroke, no bruit, no jugular venous distention. Lungs: Clear to auscultation. Heart: Tachycardic, S1-S2, no S3, no rub. No murmur. Abdomen: Soft nontender, positive bowel sounds no organomegaly. Extremities: No edema, intact distal pulses, dressing on the right leg. Labs: Potassium 4.3, BUN 13, creatinine 0.79. Hemoglobin A1c 6.8, hemoglobin 14.1. Chest x-ray with no acute infiltrate EKG: EKG on September 02 sinus mechanism with no acute ST segment changes, EKG today revealed atrial flutter with 2 to one conduction and nonspecific ST-T wave changes Impression: 1. New onset atrial flutter with 2 to one conduction, asymptomatic, his risk score is 3 2. Status post right hip hemiarthroplasty post fall, no syncope 3. History of hypertension 4. History of hyperlipidemia 5. History of diabetes Plan: 1. Initiate IV Cardizem 2. Add oral beta lady 3. Stop Norvasc and aspirin 4. Start anticoagulation if agreeable by the surgeon 5. Obtain an echocardiogram with Doppler 6. Obtain TSH 7. If patient persists in having atrial flutter after controlling ventricular response he may be a candidate for cardioversion after anticoagulation 8. The recommendations were discussed with the patient and his 9. Thank you for this consult we will follow with you Past Medical History Past Medical History: Hyperlipidemia, Hypertension History of Any Multi-Drug Resistant Organisms: None Reported Past Surgical History: No Surgical Hx Reported Past Anesthesia/Blood Transfusion Reactions: No Reported Reaction Past Psychological History: No Psychological Hx Reported Past Alcohol Use History: Occasional Past Drug Use History: None Reported Medications and Allergies Home Medications Medication Instructions Recorded Confirmed Type Aspirin EC [Ecotrin Low Dose] 81 mg PO HS 06/03/19 09/02/22 History Cetirizine HCl [Zyrtec] 10 mg PO DAILY 06/03/19 09/02/22 History amLODIPine [Norvasc] 5 mg PO DAILY 06/03/19 09/02/22 History lisinopriL [Zestril] 20 mg PO DAILY 06/03/19 09/02/22 History metFORMIN HCL [Glucophage] 500 mg PO QA 06/03/19 09/02/22 History Ascorbic Acid [Vitamin C] 1,000 mg PO DAILY 09/02/22 09/02/22 History Atorvastatin [Lipitor] 20 mg PO HS 09/02/22 09/02/22 History Cholecalciferol (Vitamin D3) 75 mcg PO DAILY 09/02/22 09/02/22 History [Vitamin D3 (3000 Iu)] Multivitamins, Thera [Multivitamin 1 tab PO DAILY 09/02/22 09/02/22 History (formulary)] Zinc Sulfate 50 mg PO DAILY 09/02/22 09/02/22 History allopurinoL 300 mg PO DAILY 09/02/22 09/02/22 History metFORMIN HCL [Glucophage] 1,000 mg PO HS 09/02/22 09/02/22 History Allergies Allergy/AdvReac Type Severity Reaction Status Date / Time peanut Allergy Unknown Verified 09/02/22 18:01 Milk Containing Products AdvReac Nausea & Verified 09/02/22 18:01 [Dairy] Vomiting pineapple AdvReac Nausea & Verified 09/02/22 18:01 Vomiting Yeast AdvReac Nausea & Verified 09/02/22 18:01 Vomiting Physical Exam Vitals: Vital Signs Temp Pulse Pulse Resp BP Pulse Ox 09/04/22 08:59 153 H 120/78 94 L 09/04/22 08:24 151 H 123/82 95 09/04/22 08:09 116 H 105/75 97 09/04/22 08:01 96 09/04/22 08:00 99.8 F H 111 H 18 104/64 99 09/04/22 02:00 98.3 F 126 H 19 130/84 94 L 09/03/22 19:09 100 F H 83 17 145/81 92 L 09/03/22 14:09 85 117/78 96 09/03/22 13:54 79 145/77 96 09/03/22 13:39 76 151/80 95 09/03/22 13:24 76 157/85 95 09/03/22 13:09 75 157/80 94 L 09/03/22 12:54 98.0 F 81 18 155/87 91 L 09/03/22 12:37 78 17 139/69 95 09/03/22 12:22 76 16 128/67 09/03/22 12:07 75 16 127/70 95 09/03/22 11:52 76 16 121/65 100 09/03/22 11:37 97.9 F 68 16 118/63 99 Intake and Output 09/03/22 09/04/22 09/04/22 22:59 06:59 14:59 Output Total 2300 2200 Balance -2300 -2200 Output: Urine 2300 2200 Other: Voiding Method Indwelling Catheter Results 09/04/22 03:03 09/04/22 03:03 CBC 09/03/22 09/04/22 Range/Units 14:57 03:03 WBC 11.4 H 13.1 H (3.8-10.6) k/uL RBC 4.37 4.26 L (4.30-5.90) m/uL Hgb 14.4 14.1 (13.0-17.5) gm/dL Hct 41.8 40.5 (39.0-53.0) % Plt Count 185 182 (150-450) k/uL Comprehensive Metabolic Panel 09/04/22 Range/Units 03:03 Sodium 135 L (137-145) mmol/L Potassium 4.3 (3.5-5.1) mmol/L Chloride 103 (98-107) mmol/L Carbon Dioxide 26 (22-30) mmol/L BUN 13 (9-20) mg/dL Creatinine 0.79 (0.66-1.25) mg/dL Glucose 188 H (74-99) mg/dL Calcium 8.7 (8.4-10.2) mg/dL Current Medications Generic Name Dose Route Start Last Admin Trade Name Freq PRN Reason Stop Dose Admin Acetaminophen 650 mg 09/03/22 11:20 Acetaminophen Tab 325 Mg Tab PO Q4HR PRN Pain Scale 1 to 5 Hydrocodone Bitart/Acetaminophen 1 each 09/02/22 18:15 09/04/22 06:50 Hydrocodone/Apap 5-325mg 1 Each Tab PO 1 each Q4HR PRN Administration Pain Hydrocodone Bitart/Acetaminophen 1 each 09/03/22 11:19 09/04/22 00:12 Hydrocodone/Apap 5-325mg 1 Each Tab PO 1 each Q4HR PRN Administration Pain Allopurinol 300 mg 09/03/22 09:00 09/04/22 08:15 Allopurinol 300 Mg Tab PO 300 mg DAILY LYRIC Administration Apixaban 5 mg 09/04/22 09:15 Apixaban 5 Mg Tab PO BID LYRIC Protocol Ascorbic Acid 1,000 mg 09/03/22 09:00 09/04/22 08:15 Ascorbic Acid 500 Mg Tab PO 1,000 mg DAILY LYRIC Administration Atorvastatin Calcium 20 mg 09/02/22 21:00 09/03/22 21:57 Atorvastatin 20 Mg Tab PO 20 mg HS LYRIC Administration Benzocaine/Menthol 1 each 09/03/22 11:19 Benzocaine/Menthol Lozeng 1 Each Lozenge MUCOUS MEM Q4HR PRN Sore Throat Cholecalciferol 75 mcg 09/03/22 09:00 09/04/22 08:15 Cholecalciferol 25 Mcg (1000 Iu) Tablet PO 75 mcg DAILY LYRIC Administration Diltiazem HCl 10 mg 09/04/22 09:15 Diltiazem 5 Mg/Ml 5 Ml Vial IVP 09/04/22 09:16 ONCE STA Hydromorphone HCl 1 mg 09/02/22 18:15 09/04/22 08:16 Hydromorphone 1 Mg/Ml 1 Ml Syringe IVP 1 mg Q4HR PRN Administration Pain Hydromorphone HCl 1 mg 09/03/22 11:19 09/04/22 04:13 Hydromorphone 1 Mg/Ml 1 Ml Syringe IVP 1 mg Q4HR PRN Administration Pain Hydromorphone HCl 0.5 mg 09/03/22 11:19 Hydromorphone 0.5 Mg/0.5 Ml Syringe IVP Q4HR PRN Pain Potassium Chloride/Dextrose/Sod Cl 1,000 mls @ 100 mls/hr 09/02/22 18:15 09/04/22 00:16 D5%-1/2ns-Kcl 20 Meq/L Iv Solution IV 100 mls/hr .Q10H LYRIC Administration Sodium Chloride 1,000 mls @ 75 mls/hr 09/03/22 11:30 09/04/22 02:17 Saline 0.9% IV 75 mls/hr .[id number] LYRIC Administration Diltiazem HCl 125 mg/ Sodium 125 mls @ 10 mls/hr 09/04/22 09:15 Chloride IV .[id number] LYRIC 10 MG/HR Lisinopril 20 mg 09/03/22 09:00 09/03/22 13:49 Lisinopril 20 Mg Tab PO Not Given DAILY LYRIC Loratadine 10 mg 09/03/22 09:00 09/04/22 08:15 Loratadine 10 Mg Tab PO 10 mg DAILY LYRIC Administration Magnesium Hydroxide 2,400 mg 09/03/22 11:20 Magnesium Hydroxide 2,400 Mg/10 Ml Cup PO DAILY PRN Constipation Metformin HCl 500 mg 09/03/22 09:00 09/04/22 08:16 Metformin 500 Mg Tab PO 500 mg QAM LYRIC Administration Metformin HCl 1,000 mg 09/02/22 21:00 09/03/22 21:56 Metformin 500 Mg Tab PO 500 mg HS LYRIC Administration Metoprolol Tartrate 50 mg 09/04/22 09:15 Metoprolol Tartrate 50 Mg Tab PO BID LYRIC Multivitamins 1 each 09/03/22 09:00 09/04/22 08:15 Multivitamins, Thera 1 Each Tab PO 1 each DAILY LYRIC Administration Naloxone HCl 0.2 mg 09/03/22 11:20 Naloxone 0.4 Mg/Ml 1 Ml Vial IV Q2M PRN Opioid Reversal Ondansetron HCl 4 mg 09/03/22 11:20 Ondansetron 4 Mg/2 Ml Vial IVP Q24HR PRN Nausea And Vomiting Senna/Docusate Sodium 1 each 09/04/22 09:00 09/04/22 08:15 Sennosides-Docusate Sodium 1 Each Tab PO 1 each DAILY LYRIC Administration Zinc Sulfate 220 mg 09/03/22 09:00 09/04/22 08:15 Zinc Sulfate 220 Mg Cap PO 220 mg DAILY LYRIC Administration Intake and Output 09/03/22 09/04/22 09/04/22 22:59 06:59 14:59 Output Total 2300 2200 Balance -2300 -2200 Output: Urine 2300 2200 Other: Voiding Method Indwelling Catheter 09/04/22 03:03 09/04/22 03:03
[2022-09-04] MEDS: METOPROLOL TARTRATE 50 MG TAB PO SCH ×2 (10:51→20:12)
--- NOTE | 2022-09-04 10:54 | P.PN ---
Progress Note - Text Progress Note Date: 09/04/22 Postoperative day #1 Patient is seen and examined today at bedside. The patient has some pain around the surgical site as expected around his right hip. Pain is being moderately controlled with medication. He has been able to get up and ambulate with a walker. His pain is much improved compared to yesterday preoperatively, but is still quite sore around his hip at the surgery site. Events from yesterday evening are reviewed. He had substantial increase in his heart rate around 7 PM yesterday evening. He denies any chest pain shortness of breath. Denies any heaviness in his chest. He denies any weakness or numbness tingling in his legs. He denies any headaches. Denies any fevers. Physical Exam Afebrile He is tachycardic. His rate is often maintaining in the 150's. Blood pressure is stable Abdomen is soft nontender. Chest has good excursion deep and space expiration The incision site is clean dry and intact. No erythema there is no purulence. Extremities have not had neurologic change from prior to surgery. He has sustained a flexion plantar flexion and EHL intact. His calves and thighs soft nontender. Negative Homans sign The incision site is clear. There is some mild swelling. There is no active drainage. Calves and thighs were soft nontender without evidence of DVT. Assessment/Plan Postoperative day #1 status post right hip hemiarthroplasty for his acute traumatic femoral neck fracture due to a fall Tachycardia with atrial flutter, acute new onset The patient's hip seems to be stable and is progressing as expected from the surgery, in terms of stability and motion. The patient has new onset tachycardia with likely atrial flutter. He is not having any chest pain or shortness of breath. His blood pressure is maintaining stability. Cardiology patient recommendations orders are appreciated. He has started on Cardizem and is being transferred to telemetry monitoring on the third floor which I think is appropriate. He had a cardiac echo which they will continue to monitor. It is okay from an orthopedic standpoint for him to start on Eliquis as needed as per cardiology. Had a long talk with the patient and his family in regards to his injury and this new cardiac issue as well. Certainly this is a new issue for him as his heart rate was in the 70s and 80s preoperatively. There are continue further workup Lozada need for possible cardioversion further testing and treatment as per cardiology service. We will continue to increase the patient's mobilization with therapy for weightbearing as tolerated with hip dislocation cautions on the right lower extremity. We will continue pain control with oral or IV medications. We'll continue to follow patient closely.
--- NOTE | 2022-09-04 10:54 | P.CONS ---
History of Present Illness - Reason for Consult Consult date: 09/03/22 Medical management/surgical clearance for femoral neck fracture - History of Present Illness This is a 67-year-old male who was presented to the emergency department with reports of right hip pain status post mechanical fall missed stepping off the curb while at [employer] and fell landing on the hip. Patient denies any other feelings of dizziness, lightheadedness, feeling of passing out. Patient was admitted under orthopedic services for right femoral neck fracture tentatively scheduled for surgical clearance and surgical intervention of the hip. Patient reports he follows with Dr. Reddy in the outpatient setting with a past medical history of hypertension and high cholesterol. Patient reports he takes leighton nopril for his blood pressure and denies any other significant medical history. Patient is obese with a BMI of 34.6 and reports to never smoking occasionally on social events uses alcohol and denies any other illicit drug use. Labs reviewed and an initial WBC was elevated at 14.1 most likely reactive with a hemoglobin of 15.8 and platelets were 234, sodium is 134 with a potassium of 4.3 and crea tinine was 0.83. Blood sugar is elevated at 152 and patient denies any history of diabetes will obtain a hemoglobin A1c which is currently pending. Patient's chest x-ray on admission shows no acute pulmonary process and the lungs are clear, right hip and pelvis x-ray was done to evaluate for fracture showing a right femoral neck fracture with varus angulation. Patient admitted under orthopedic services for surgical intervention status post fall with femoral neck fracture. Medical management consultation for history of hyperlipidemia and hypertension. Review Of Systems: Constitutional: No fever, no chills, no night sweats. No weight change. No weakness, fatigue or lethargy. No daytime sleepiness. EENT: No headache. No blurred vision or double vision, no loss of vision. No loss of Hearing, no ringing in the ears, no dizziness. No nasal drainage or congestion. No epistaxis. No sore throat. Lungs: No shortness of breath, cough, no sputum production. No wheezing. Cardiovascular: No chest pain, no lower extremity edema. No palpitations. No paroxysmal nocturnal dyspnea. No orthopnea. No lightheadedness or dizziness. No syncopal episodes. Abdominal: No abdominal pain. No nausea, vomiting. No diarrhea. No constipation. No bloody or tarry stools.. No loss of appetite. Genitourinary: No dysuria, increased frequency, urgency. No urinary retention. Musculoskeletal: No myalgias. No muscle weakness, reports gait dysfunction status post fall, no frequent falls but fell mechanically yesterday. No back pain. No neck pain. Integumentary: No wounds, no lesions. No rash or pruritus. No unusual bruising. No change in hair or nails. Neurologic: No aphasia. No facial droop. No change in mentation. No head injury. No headache. No paralysis. No paresthesia. Psychiatric: No depression. No anxiety. No mood swings. Endocrine: No abnormal blood sugars. No weight change. No excessive sweating or thirst. No cold intolerance PHYSICAL EXAMINATION: GENERAL: The patient is alert and oriented x4, Well developed, well nourished. Obese HEENT: Pupils are round and equally reacting to light. EOMI. no scleral icterus. No conjunctival pallor. Normocephalic, atraumatic. No pharyngeal erythema. No thyromegaly. CARDIOVASCULAR: S1 and S2 muffled PULMONARY: diminished breath sounds bilaterally with no wheezing or rhonchi noted. ABDOMEN: soft. Nontender on exam. obese. non-distended, normoactive bowel sounds. No palpable organomegaly. MUSCULOSKELETAL: No joint swelling or deformity. EXTREMITIES: No cyanosis, clubbing, or pedal edema. Right hip tender on palpation NEUROLOGICAL: Gross neurological examination did not reveal any focal deficits. Diffuse weakness SKIN: No rashes. Assessment: Right femoral neck fracture with varus angulation, status post mechanical fall while mis-stepping at [employer] off the curb History of hypertension History of hyperlipidemia Mild leukocytosis, most likely reactive Obesity with a BMI of 34.6 GI prophylaxis DVT prophylaxis Full code Plan: Recommend to continue with current medications and management per orthopedic services. Patient is scheduled to undergo right femoral neck fracture repair with orthop edics, risk versus benefits were explained to the patient and patient is medically stable for surgical intervention with low risk. Patient is nothing by mouth and will initiate food and review medications home medications and review and resume appropriate Blood sugars have been elevated possibly secondary to lactated Ringer's and D5/45 being infused and will obtain a hemoglobin A1c Recommend a.m. labs Recommend incentive spirometer at least 10 times every hour while awake Patient with indwelling Betancur catheter recommend removing as soon as patient is mobile and monitor for any retention Weight-bear as tolerated per orthopedic recommendations and will have physical therapy evaluate the patient in the a.m. We will continue to monitor closely and follow along with orthopedics during hospitalization. Thank you kindly for this consultation. The impression and plan of care has been dictated by Savi Collazo, nurse practitioner as directed. Dr. Gurwinder MD I have performed a history and examination and MDM of this patient, discussed the same with the dictator, and agree with the dictator's assessment and plan as written ,documented as a scribe. Based on total visit time, I have performed more than 50% of the visit. Any additional findings or plans will be noted. Past Medical History Past Medical History: Hyperlipidemia, Hypertension History of Any Multi-Drug Resistant Organisms: None Reported Past Surgical History: No Surgical Hx Reported Past Anesthesia/Blood Transfusion Reactions: No Reported Reaction Past Psychological History: No Psychological Hx Reported Past Alcohol Use History: Occasional Past Drug Use History: None Reported Medications and Allergies Home Medications Medication Instructions Recorded Confirmed Type Aspirin EC [Ecotrin Low Dose] 81 mg PO HS 06/03/19 09/02/22 History Cetirizine HCl [Zyrtec] 10 mg PO DAILY 06/03/19 09/02/22 History amLODIPine [Norvasc] 5 mg PO DAILY 06/03/19 09/02/22 History lisinopriL [Zestril] 20 mg PO DAILY 06/03/19 09/02/22 History metFORMIN HCL [Glucophage] 500 mg PO QA 06/03/19 09/02/22 History Ascorbic Acid [Vitamin C] 1,000 mg PO DAILY 09/02/22 09/02/22 History Atorvastatin [Lipitor] 20 mg PO HS 09/02/22 09/02/22 History Cholecalciferol (Vitamin D3) 75 mcg PO DAILY 09/02/22 09/02/22 History [Vitamin D3 (3000 Iu)] Multivitamins, Thera [Multivitamin 1 tab PO DAILY 09/02/22 09/02/22 History (formulary)] Zinc Sulfate 50 mg PO DAILY 09/02/22 09/02/22 History allopurinoL 300 mg PO DAILY 09/02/22 09/02/22 History metFORMIN HCL [Glucophage] 1,000 mg PO HS 09/02/22 09/02/22 History Allergies Allergy/AdvReac Type Severity Reaction Status Date / Time peanut Allergy Unknown Verified 09/02/22 18:01 Milk Containing Products AdvReac Nausea & Verified 09/02/22 18:01 [Dairy] Vomiting pineapple AdvReac Nausea & Verified 09/02/22 18:01 Vomiting Yeast AdvReac Nausea & Verified 09/02/22 18:01 Vomiting Physical Exam Vitals: Vital Signs Temp Pulse Pulse Resp BP BP Pulse Ox 09/03/22 08:30 76 16 139/74 96 09/03/22 08:03 99.1 F 94 18 158/87 94 L 09/03/22 07:37 99.5 F 76 16 143/76 90 L 09/03/22 02:00 99.0 F 75 18 146/74 92 L 09/02/22 20:00 99.1 F 83 18 139/78 94 L 09/02/22 18:40 84 16 154/78 94 L 09/02/22 17:45 79 18 163/78 96 09/02/22 15:59 91 18 148/61 98 09/02/22 13:22 97 F L 73 20 153/79 96 Intake and Output 09/02/22 09/03/22 09/03/22 22:59 06:59 14:59 Intake Total 1050 Output Total 450 Balance 600 Intake: IV 1050 Output: Urine 450 Other: # Voids 2 Weight 115.666 kg Results CBC & Chem 7: 09/04/22 03:03 09/04/22 03:03 Labs: Abnormal Lab Results - Last 24 Hours (Table) 09/02/22 09/02/22 09/03/22 Range/Units 15:42 15:42 07:13 WBC 14.1 H (3.8-10.6) k/uL Neutrophils # 12.0 H (1.3-7.7) k/uL Sodium 134 L (137-145) mmol/L Glucose 152 H (74-99) mg/dL POC Glucose (mg/dL) 163 H (70-110) mg/dL 09/03/22 Range/Units 08:10 WBC (3.8-10.6) k/uL Neutrophils # (1.3-7.7) k/uL Sodium (137-145) mmol/L Glucose (74-99) mg/dL POC Glucose (mg/dL) 169 H (70-110) mg/dL
[2022-09-04] MEDS ORDERED: DILTIAZEM DRIP BOLUS FROM BAG 1 MG SOLN IV STA (11:44)
[2022-09-04 11:57] LABS: Glucose,Whole Blood 163 mg/dL (70-110)
[2022-09-04] MEDS: APIXABAN 5 MG TAB PO SCH ×2 (12:16→20:12)
[2022-09-04] MEDS: DILTIAZEM 125 MG in SODIUM CHLORIDE 0.9% 100 ML IV SCH ×2 (12:16→23:44)
--- NOTE | 2022-09-04 17:02 | CA ---
Transthoracic Echo Report Name: Jeff Prasad Age: 67 Gender: M : 1955 Exam Date: 09/04/2022 11:22 Exam Location: [place] [facility] Ht (in): 72 Wt (lb): 255 Ordering Physician: Lyle Spicer MD ([id number]) Attending/Referring Phys: Mechanical Field Engineer Tarah Boogie RDCS Procedure CPT: Indications: atrial flutter Cardiac Hx: Technical Quality: Technically difficult study Contrast 1: Lumason Total Dose (mL): 4 Contrast 2: Total Dose (mL): MEASUREMENTS (Male / Female) Normal Values 2D ECHO LV Diastolic Diameter PLAX 5.2 cm 4.2 - 5.9 / 3.9 - 5.3 cm LV Systolic Diameter PLAX 4.2 cm IVS Diastolic Thickness 1.2 cm 0.6 - 1.0 / 0.6 - 0.9 cm LVPW Diastolic Thickness 1.3 cm 0.6 - 1.0 / 0.6 - 0.9 cm LV Relative Wall Thickness 0.5 RV Internal Dim ED PLAX 3.4 cm LA Volume 73.0 cm??? 18 - 58 / 22 - 52 cm??? M-MODE Aortic Root Diameter MM 2.8 cm LA Systolic Diameter MM 4.6 cm LA Ao Ratio MM 1.7 AV Cusp Separation MM 1.9 cm DOPPLER AV Peak Velocity 159.9 cm/s AV Peak Gradient 10.2 mmHg AV Mean Velocity 107.0 cm/s AV Mean Gradient 5.2 mmHg AV Velocity Time Integral 26.5 cm LVOT Peak Velocity 81.3 cm/s LVOT Peak Gradient 2.6 mmHg TR Peak Velocity 254.7 cm/s TR Peak Gradient 25.9 mmHg Right Ventricular Systolic Press 30.9 mmHg FINDINGS Left Ventricle Mildly increased septal wall thickness. Reduced global left ventricular systolic function. Left ventricular ejection fraction is estimated at 50-55 %. Right Ventricle Mild right ventricular dilatation. Right ventricular systolic pressure within normal limits. Right Atrium Right atrium not well visualized. Left Atrium Moderately increased left atrial volume. Mildly increased left atrial area. Mitral Valve Mild mitral annular calcification. Mild mitral regurgitation. Aortic Valve Trileaflet aortic valve. Tricuspid Valve Mild tricuspid regurgitation.structurally normal tricuspid valve. Pulmonic Valve Pulmonic valve not well visualized. Pericardium Minimal pericardial effusion (normal variant). Aorta Normal size aortic root and proximal ascending aorta. CONCLUSIONS 1. Left ventricle systolic function borderline normal 2. Mildly dilated right ventricle with normal right-sided pressure 3. Mild mitral and tricuspid regurgitation Previewed by: Dr. Lyle Spicer MD (Electronically Signed) Final Date: 04 September 2022 17:01
[2022-09-04 17:06] LABS: Glucose,Whole Blood 170 mg/dL (70-110)
[2022-09-04] MEDS: ATORVASTATIN 20 MG TAB PO SCH (20:13)
[2022-09-04 20:14] LABS: Glucose,Whole Blood 188 mg/dL (70-110)
[2022-09-05] MEDS: HYDROmorphone 1 MG/ML 1 ML SYRINGE IVP PRN ×6 (00:59→21:34)
--- NOTE | 2022-09-05 03:19 | P.PN ---
Subjective Progress Note Date: 09/04/22 - Reason for Consult Consult date: 09/03/22 Medical management/surgical clearance for femoral neck fracture - History of Present Illness This is a 67-year-old male who was presented to the emergency department with reports of right hip pain status post mechanical fall missed stepping off the curb while at [employer] and fell landing on the hip. Patient denies any other feelings of dizziness, lightheadedness, feeling of passing out. Patient was admitted under orthopedic services for right femoral neck fracture tentatively scheduled for surgical clearance and surgical intervention of the hip. Patient reports he follows with Dr. Reddy in the outpatient setting with a past medical history of hypertension and high cholesterol. Patient reports he takes lisinopril for his blood pressure and denies any other significant medical hi story. Patient is obese with a BMI of 34.6 and reports to never smoking occasionally on social events uses alcohol and denies any other illicit drug use. Labs reviewed and an initial WBC was elevated at 14.1 most likely reactive with a hemoglobin of 15.8 and platelets were 234, sodium is 134 with a potassium of 4.3 and creatinine was 0.83. Blood sugar is elevated at 152 and patient denies any history of diabetes will obtain a hemoglobin A1c which is currently pending. Patient's chest x-ray on admission shows no acute pulmonary process and the lungs are clear, right hip and pelvis x-ray was done to evaluate for fracture showing a right femoral neck fracture with varus angulation. Patient admitted under orthopedic services for surgical intervention status post fall with femoral neck fracture. Medical management consultation for history of hyperlipidemia and hypertension. 09/04/2022 Patient is seen and evaluated follow-up and overnight started developing heart rate into the 130s/150s an EKG was obtained with atrial flutter and cardiology consulted. Patient was placed on telemetry monitoring and EKG was done along with chest x-ray and labs. WBC mildly elevated most likely reactive due to surgery as patient is status post right hemiarthroplasty postop day 1. Patient is continued on 2 L via nasal cannula for supplemental report will shortness of breath. Patient denies palpitations or chest pain. Patient is having some right hip pain with movement and due to his current heart rate and irregularity has not been up to work with physical therapy. Patient denies nausea or vomiting and is tolerating diet. Blood sugars mildly elevated and hemoglobin A1c will be obtained. Review of systems: Constitutional: No reports of fatigue, fever, or chills Cardiovascular: No reports of chest pain or palpitations Respiratory: No reports of shortness of breath or cough GI: No reports of nausea, vomiting, or diarrhea: Reports minimal gas with no bowel movement as of yet : No reports of dysuria or retention Neurovascular: reports of generalized weakness and some mild stiffness of the right extremity All medications have been reviewed Active Medications Acetaminophen (Acetaminophen Tab 325 Mg Tab) 650 mg PO Q4HR PRN PRN Reason: Pain Scale 1 to 5 Last Admin: 09/04/22 23:46 Dose: 650 mg Hydrocodone Bitart/Acetaminophen (Hydrocodone/Apap 5-325mg 1 Each Tab) 1 each PO Q4HR PRN PRN Reason: Pain Last Admin: 09/04/22 17:43 Dose: 1 each Hydrocodone Bitart/Acetaminophen (Hydrocodone/Apap 5-325mg 1 Each Tab) 1 each PO Q4HR PRN PRN Reason: Pain Last Admin: 09/04/22 22:27 Dose: 1 each Allopurinol (Allopurinol 300 Mg Tab) 300 mg PO DAILY [facility] Last Admin: 09/04/22 08:15 Dose: 300 mg Apixaban (Apixaban 5 Mg Tab) 5 mg PO BID [facility]; Protocol Last Admin: 09/04/22 20:12 Dose: 5 mg Ascorbic Acid (Ascorbic Acid 500 Mg Tab) 1,000 mg PO DAILY [facility] Last Admin: 09/04/22 08:15 Dose: 1,000 mg Atorvastatin Calcium (Atorvastatin 20 Mg Tab) 20 mg PO HS [facility] Last Admin: 09/04/22 20:13 Dose: 20 mg Benzocaine/Menthol (Benzocaine/Menthol Lozeng 1 Each Lozenge) 1 each MUCOUS MEM Q4HR PRN PRN Reason: Sore Throat Cholecalciferol (Cholecalciferol 25 Mcg (1000 Iu) Tablet) 75 mcg PO DAILY [facility] Last Admin: 09/04/22 08:15 Dose: 75 mcg Hydromorphone HCl (Hydromorphone 1 Mg/Ml 1 Ml Syringe) 1 mg IVP Q4HR PRN PRN Reason: Pain Last Admin: 09/05/22 00:59 Dose: 1 mg Hydromorphone HCl (Hydromorphone 1 Mg/Ml 1 Ml Syringe) 1 mg IVP Q4HR PRN PRN Reason: Pain Last Admin: 09/04/22 04:13 Dose: 1 mg Hydromorphone HCl (Hydromorphone 0.5 Mg/0.5 Ml Syringe) 0.5 mg IVP Q4HR PRN PRN Reason: Pain Potassium Chloride/Dextrose/Sod Cl (D5%-1/2ns-Kcl 20 Meq/L Iv Solution) 1,000 mls @ 100 mls/hr IV .Q10H [facility] Last Admin: 09/04/22 20:00 Dose: 100 mls/hr Sodium Chloride (Saline 0.9%) 1,000 mls @ 75 mls/hr IV .[id number] [facility] Last Admin: 09/04/22 12:25 Dose: 75 mls/hr Diltiazem HCl 125 mg/ Sodium (Chloride) 125 mls @ 10 mls/hr IV .[id number] [facility] Last Admin: 09/04/22 23:44 Dose: 10 mg/hr, 10 mls/hr Lisinopril (Lisinopril 20 Mg Tab) 20 mg PO DAILY [facility] Last Admin: 09/04/22 11:13 Dose: Not Given Loratadine (Loratadine 10 Mg Tab) 10 mg PO DAILY [facility] Last Admin: 09/04/22 08:15 Dose: 10 mg Magnesium Hydroxide (Magnesium Hydroxide 2,400 Mg/10 Ml Cup) 2,400 mg PO DAILY PRN PRN Reason: Constipation Metformin HCl (Metformin 500 Mg Tab) 500 mg PO QAM [facility] Last Admin: 09/04/22 08:16 Dose: 500 mg Metformin HCl (Metformin 500 Mg Tab) 1,000 mg PO HS [facility] Last Admin: 09/04/22 20:13 Dose: 1,000 mg Metoprolol Tartrate (Metoprolol Tartrate 50 Mg Tab) 50 mg PO BID [facility] Last Admin: 09/04/22 20:12 Dose: 50 mg Multivitamins (Multivitamins, Thera 1 Each Tab) 1 each PO DAILY [facility] Last Admin: 09/04/22 08:15 Dose: 1 each Naloxone HCl (Naloxone 0.4 Mg/Ml 1 Ml Vial) 0.2 mg IV Q2M PRN PRN Reason: Opioid Reversal Ondansetron HCl (Ondansetron 4 Mg/2 Ml Vial) 4 mg IVP Q24HR PRN PRN Reason: Nausea And Vomiting Senna/Docusate Sodium (Sennosides-Docusate Sodium 1 Each Tab) 1 each PO DAILY [facility] Last Admin: 09/04/22 08:15 Dose: 1 each Zinc Sulfate (Zinc Sulfate 220 Mg Cap) 220 mg PO DAILY [facility] Last Admin: 09/04/22 08:15 Dose: 220 mg PHYSICAL EXAMINATION: GENERAL: The patient is alert and oriented x4, Well developed, well nourished. Obese HEENT: Pupils are round and equally reacting to light. EOMI. no scleral icterus. No conjunctival pallor. Normocephalic, atraumatic. No pharyngeal erythema. No thyromegaly. CARDIOVASCULAR: S1 and S2 muffled, irregular PULMONARY: diminished breath sounds bilaterally with no wheezing or rhonchi noted. ABDOMEN: soft. Nontender on exam. obese. non-distended, normoactive bowel sounds. No palpable organomegaly. MUSCULOSKELETAL: No joint swelling or deformity. EXTREMITIES: No cyanosis, clubbing, or pedal edema. Right hip tender on palpation, positive Refill and pulses noted of the lower extremities NEUROLOGICAL: Gross neurological examination did not reveal any focal deficits. Diffuse weakness SKIN: No rashes. Assessment: Right femoral neck fracture with varus angulation, status post mechanical fall while mis-stepping at [employer] off the curb Status post right hip hemiarthroplasty, postop A1 Atrial flutter with 2 to 1 conduction, new onset Borderline diabetes mellitus History of hypertension History of hyperlipidemia Mild leukocytosis, most likely reactive Obesity with a BMI of 34.6 GI prophylaxis DVT prophylaxis Full code Plan: Recommend to continue with current medications and management per orthopedic services. Patient underwent right hip hemiarthroplasty with orthopedics, postop day 1 Patient developed heart rates into the [id number] and noted to be in atrial flutter and EKG along with chest x-ray, telemetry monitoring, cardiology consulted and following recommending transferring to 3 S. to initiate Cardizem drip and patient was started on oral a walker if considering oral anticoagulation. 2-D echo ordered Home medications reviewed and resumed and patient noted to have elevated blood sugars, hemoglobin A1c was noted to be 6.5 and with borderline pre-diabetes Recommend telemetry monitoring Recommend a.m. labs Recommend incentive spirometer at least 10 times every hour while awake Patient had indwelling Betancur catheter removed and voiding with no difficulties Weight-bear as tolerated per orthopedic recommendations and will have physical therapy evaluate the patient We will continue to monitor closely and follow along with orthopedics during hospitalization. Thank you kindly for this consultation. The impression and plan of care has been dictated by Savi Collazo, nurse practitioner as directed. Dr. Gurwinder MD I have performed a history and examination and MDM of this patient, discussed the same with the dictator, and agree with the dictator's assessment and plan as written ,documented as a scribe. Based on total visit time, I have performed more than 50% of the visit. Any additional findings or plans will be noted. Objective - Vital Signs Vital signs: Vital Signs Temp 98.5 F 09/04/22 10:10 Pulse 107 H 09/04/22 10:51 Resp 18 09/04/22 08:00 BP 128/83 09/04/22 10:51 Pulse Ox 94 L 09/04/22 10:10 FiO2 Intake & Output 09/03/22 09/04/22 09/04/22 18:59 06:59 18:59 Intake Total 2350 Output Total 4750 2200 Balance -2400 -2200 Intake: IV 2350 Output: Urine 4550 2200 Estimated Blood Loss 200 Other: Voiding Method Indwelling Catheter - Labs CBC & Chem 7: 09/04/22 03:03 09/04/22 03:03 Labs: Abnormal Lab Results - Last 24 Hours (Table) 09/03/22 09/03/22 09/03/22 Range/Units 12:59 14:57 16:05 WBC 11.4 H (3.8-10.6) k/uL RBC (4.30-5.90) m/uL Neutrophils # 10.3 H (1.3-7.7) k/uL Lymphocytes # 0.6 L (1.0-4.8) k/uL Sodium (137-145) mmol/L Glucose (74-99) mg/dL POC Glucose (mg/dL) 172 H 264 H (70-110) mg/dL Hemoglobin A1c (0.0-6.0) % 09/03/22 09/04/22 09/04/22 Range/Units 20:42 01:59 03:03 WBC 13.1 H (3.8-10.6) k/uL RBC 4.26 L (4.30-5.90) m/uL Neutrophils # (1.3-7.7) k/uL Lymphocytes # (1.0-4.8) k/uL Sodium (137-145) mmol/L Glucose (74-99) mg/dL POC Glucose (mg/dL) 197 H 175 H (70-110) mg/dL Hemoglobin A1c (0.0-6.0) % 09/04/22 09/04/22 09/04/22 Range/Units 03:03 03:03 07:12 WBC (3.8-10.6) k/uL RBC (4.30-5.90) m/uL Neutrophils # (1.3-7.7) k/uL Lymphocytes # (1.0-4.8) k/uL Sodium 135 L (137-145) mmol/L Glucose 188 H (74-99) mg/dL POC Glucose (mg/dL) 202 H (70-110) mg/dL Hemoglobin A1c 6.8 H (0.0-6.0) % 09/04/22 Range/Units 08:23 WBC (3.8-10.6) k/uL RBC (4.30-5.90) m/uL Neutrophils # (1.3-7.7) k/uL Lymphocytes # (1.0-4.8) k/uL Sodium (137-145) mmol/L Glucose (74-99) mg/dL POC Glucose (mg/dL) 227 H (70-110) mg/dL Hemoglobin A1c (0.0-6.0) %
[2022-09-05] MEDS: SODIUM CHLORIDE 0.9% 1,000 ML IV SCH ×2 (04:22→14:49)
--- NOTE | 2022-09-05 05:56 | P.PN ---
Subjective Progress Note Date: 09/05/22 The patient is a pleasant 67-year-old gentleman with a past medical history significant for diabetes and hypertension and dyslipidemia who was admitted to the hospital after he fell and fractured his right hip and underwent right hip surgery. Subsequently he developed atrial fibrillation which is known to him. Further investigation including an echocardiogram was performed and showed preserved biventricular systolic function was no significant valvular abnormalities. September [id number] The patient was seen and evaluated this morning. He remains in atrial fibrillation/flutter with overall controlled heart rate. He is on oral anticoagulation but he still on Cardizem IV at 10 mg per hour. His pressure has been marginal. He is also on beta lady and also he is on lisinopril. I'm going to try to wean the patient from the Cardizem IV and go up with the dose of beta lady and stop lisinopril in view of the margin a low blood pressure. Continue oral anticoagulation. Objective - Vital Signs Vital signs: Vital Signs Temp 98.0 F 09/05/22 04:00 Pulse 78 09/05/22 04:00 Resp 17 09/05/22 04:00 BP 101/56 09/05/22 04:00 Pulse Ox 97 09/05/22 04:00 FiO2 Intake & Output 09/04/22 09/04/22 09/05/22 06:59 18:59 06:59 Intake Total 120 114.667 Output Total 2200 400 Balance -2200 120 -285.333 Intake: Intake, IV Titration 114.667 Amount Diltiazem 125 mg In 114.667 Sodium Chloride 0.9% 100 ml @ 10 MG/HR 10 mls/hr IV .[id number] [facility] Rx#: [id number] Oral 120 Output: Urine 2200 400 Other: Voiding Method Indwelling Catheter Urinal Urinal - Constitutional General appearance: Present: no acute distress - Respiratory Respiratory: bilateral: CTA - Cardiovascular Rhythm: irregularly irregular - Labs CBC & Chem 7: 09/04/22 03:03 09/04/22 03:03 Labs: Abnormal Lab Results - Last 24 Hours (Table) 09/04/22 09/04/22 09/04/22 Range/Units 03:03 07:12 08:23 POC Glucose (mg/dL) 202 H 227 H (70-110) mg/dL Hemoglobin A1c 6.8 H (0.0-6.0) % 09/04/22 09/04/22 09/04/22 Range/Units 11:54 17:00 20:12 POC Glucose (mg/dL) 163 H 170 H 188 H (70-110) mg/dL Hemoglobin A1c (0.0-6.0) % Assessment and Plan Assessment: Assessment Status post fall with right hip fracture Atrial fibrillation with overall controlled heart rate. This is new onset to the patient Diabetes and hypertension and dyslipidemia Plan Continue the current medical regimen Try to wean the patient from Cardizem IV Follow-up with the dose of beta lady DC lisinopril in light of low blood pressure The echo was reviewed and showed normal ejection fraction
[2022-09-05 06:00] LABS: Glucose,Whole Blood 180 mg/dL (70-110)
[2022-09-05] MEDS: D5-0.45% NACL WITH KCL 20MEQ/L 1,000 ML IV SCH (06:09)
[2022-09-05] MEDS: HYDROcodone/APAP 5-325MG 1 EACH TAB PO PRN ×5 (06:44→23:21)
[2022-09-05] MEDS: APIXABAN 5 MG TAB PO SCH ×2 (08:05→20:02)
[2022-09-05] MEDS: ZINC SULFATE 220 MG CAP PO SCH (08:05)
[2022-09-05] MEDS: metFORMIN 500 MG TAB PO SCH ×2 (08:05→20:02)
[2022-09-05] MEDS: LORATADINE 10 MG TAB PO SCH (08:05)
[2022-09-05] MEDS: ASCORBIC ACID 500 MG TAB PO SCH (08:05)
[2022-09-05] MEDS: SENNOSIDES-DOCUSATE SODIUM 1 EACH TAB PO SCH (08:05)
[2022-09-05] MEDS: MULTIVITAMINS, THERA 1 EACH TAB PO SCH (08:05)
[2022-09-05] MEDS: allopurinoL 300 MG TAB PO SCH (08:06)
[2022-09-05] MEDS: METOPROLOL TARTRATE 50 MG TAB PO SCH ×3 (08:06→20:01)
[2022-09-05] MEDS: CHOLECALCIFEROL 25 MCG (1000 IU) TABLET PO SCH (08:06)
--- NOTE | 2022-09-05 08:31 | P.PN ---
Progress Note - Text Progress Note Date: 09/05/22 Postoperative day #2 Status post right hip hemiarthroplasty for femoral neck fracture due to a traumatic fall. The patient was seen by cardiology this morning as well in light of his new atrial fibrillation. Patient is seen and examined today at bedside. The patient has some pain around the surgical site as expected. Pain is being controlled with medication. He has been able to ambulate and weight-bear on the right leg. He says his leg is sore but feeling okay. He denies any chest pain or shortness of breath. Denies any lightheadedness or headaches. Physical Exam Afebrile yesterday when he was started on a Cardizem drip at 10 his rhythm lower to the 70s and 80s. He maintain that evening. This morning he went up to around 110 when he was getting up to easily bathroom. He denies any shortness breath Abdomen is soft nontender. Chest has good excursion deep and space expiration The incision site is clean dry and intact. No erythema there is no purulence. There is no drainage on the dressing. His thighs soft and nontender his calf soft nontender. He has negative Octavio's. Left lower extremity has no changes. Extremities have not had neurologic change from prior to surgery. He has sustained dorsal to plantar flexion and EHL intact. Calves and thighs were soft nontender without evidence of DVT. Assessment/Plan Postoperative day #2 status post right hip hemiarthroplasty for traumatic femoral neck fracture due to a fall New atrial fibrillation Patient is progressing with his hip from the surgery as expected in terms of pain and mobilization. We will continue to increase the patient's mobilization with therapy. We will continue his oral pain medication and mobilized weightbearing as tolerated with hip precautions. We will continue pain control with oral or IV medications. In regards to his new atrial fibrillation is being managed closely with cardiology. They are weaning down the lisinopril as his blood pressure is slightly low. They're increasing his beta lady and try to titrate the Cardizem for his atrial fibrillation. His pulse has seemed to stabilize with a Cardizem and we will continue to manage his rate and a trough ablation. He is on anticoagulants as well. His primary issue at this point is his cardiac status as his hip appears to be progressing adequately. We'll continue to follow patient closely.
[2022-09-05 09:25] LABS: Basophils # (A) 0.1 k/uL (0-0.2); Basophils % (A) 1 %; Eosinophils # (A) 0.2 k/uL (0-0.7); Eosinophils % (A) 2 %; HCT 42.7 % (39.0-53.0); HGB 14.3 gm/dL (13.0-17.5); Lymphocytes # (A) 2.7 k/uL (1.0-4.8); Lymphocytes % (A) 21 %; MCH 33.2 pg (25.0-35.0); MCHC 33.6 g/dL (31.0-37.0); MCV 98.9 fL (80.0-100.0); Mean Platelet Volume 8.3; Monocytes % (A) 8 %; Neutrophils # (A) 8.8 k/uL (1.3-7.7); Neutrophils % (A) 67 %; Platelet Count 204 k/uL (150-450); RBC 4.31 m/uL (4.30-5.90); RDW 11.9 % (11.5-15.5); WBC 13.2 k/uL (3.8-10.6)
[2022-09-05 11:45] LABS: Glucose,Whole Blood 159 mg/dL (70-110)
[2022-09-05] MEDS: DILTIAZEM 125 MG in SODIUM CHLORIDE 0.9% 100 ML IV SCH (12:24)
[2022-09-05] MEDS ORDERED: CYCLOBENZAPRINE 5 MG TAB PO PRN (13:05)
[2022-09-05 16:39] LABS: Glucose,Whole Blood 171 mg/dL (70-110)
[2022-09-05 19:13] LABS: African American GFR (CKD) >90 (>60 ml/min/1.73 sqM); Anion Gap 13 mmol/L; Blood Urea Nitrogen 16 mg/dL (9-20); Calcium 9.1 mg/dL (8.4-10.2); Carbon Dioxide 22 mmol/L (22-30); Chloride 102 mmol/L (98-107); Glucose 186 mg/dL (74-99); Non-African American GFR(CKD) >90 (>60 ml/min/1.73 sqM); Potassium 4.4 mmol/L (3.5-5.1); Sodium 137 mmol/L (137-145)
[2022-09-05] MEDS: ATORVASTATIN 20 MG TAB PO SCH (20:02)
[2022-09-05 20:24] LABS: Glucose,Whole Blood 176 mg/dL (70-110)
[2022-09-06] MEDS: DILTIAZEM 125 MG in SODIUM CHLORIDE 0.9% 100 ML IV SCH (01:30)
[2022-09-06] MEDS: HYDROmorphone 1 MG/ML 1 ML SYRINGE IVP PRN ×2 (03:34→07:46)
--- NOTE | 2022-09-06 04:11 | P.PN ---
Subjective Progress Note Date: 09/05/22 - Reason for Consult Consult date: 09/03/22 Medical management/surgical clearance for femoral neck fracture - History of Present Illness This is a 67-year-old male who was presented to the emergency department with reports of right hip pain status post mechanical fall missed stepping off the curb while at [employer] and fell landing on the hip. Patient denies any other feelings of dizziness, lightheadedness, feeling of passing out. Patient was admitted under orthopedic services for right femoral neck fracture tentatively scheduled for surgical clearance and surgical intervention of the hip. Patient reports he follows with Dr. Reddy in the outpatient setting with a past medical history of hypertension and high cholesterol. Patient reports he takes lisinopril for his blood pressure and denies any other significant medical hi story. Patient is obese with a BMI of 34.6 and reports to never smoking occasionally on social events uses alcohol and denies any other illicit drug use. Labs reviewed and an initial WBC was elevated at 14.1 most likely reactive with a hemoglobin of 15.8 and platelets were 234, sodium is 134 with a potassium of 4.3 and creatinine was 0.83. Blood sugar is elevated at 152 and patient denies any history of diabetes will obtain a hemoglobin A1c which is currently pending. Patient's chest x-ray on admission shows no acute pulmonary process and the lungs are clear, right hip and pelvis x-ray was done to evaluate for fracture showing a right femoral neck fracture with varus angulation. Patient admitted under orthopedic services for surgical intervention status post fall with femoral neck fracture. Medical management consultation for history of hyperlipidemia and hypertension. 09/04/2022 Patient is seen and evaluated follow-up and overnight started developing heart rate into the 130s/150s an EKG was obtained with atrial flutter and cardiology consulted. Patient was placed on telemetry monitoring and EKG was done along with chest x-ray and labs. WBC mildly elevated most likely reactive due to surgery as patient is status post right hemiarthroplasty postop day 1. Patient is continued on 2 L via nasal cannula for supplemental report will shortness of breath. Patient denies palpitations or chest pain. Patient is having some right hip pain with movement and due to his current heart rate and irregularity has not been up to work with physical therapy. Patient denies nausea or vomiting and is tolerating diet. Blood sugars mildly elevated and hemoglobin A1c will be obtained. 09/05/2022 Patient is seen and evaluated and follow-up with cardiology and orthopedics following. Patient is status post right hemiarthroplasty postop day #2. Patient continues to be in atrial fibrillation with flutter maintained on IV Cardizem and also oral anticoagulation. Blood pressures have been on the lower side and cardiology making adjustments to lisinopril and will continue beta blo cker adjustments. Currently weaning off IV Cardizem with adjustments to beta blockers and recommend to continue with telemetry monitoring. Wean FiO2 as tolerated as patient is maintained on 2 L and is now her oxygen at home. Patient denies shortness of breath and reports this is been on insulin surgery. Blood sugars mildly elevated recommend continue monitoring Accu-Cheks before meals and at bedtime and will use sliding scale as needed Review of systems: Constitutional: No reports of fatigue, fever, or chills Cardiovascular: No reports of chest pain or palpitations Respiratory: No reports of shortness of breath or cough GI: No reports of nausea, vomiting, or diarrhea: Reports minimal gas with no bowel movement as of yet : No reports of dysuria or retention Neurovascular: reports of generalized weakness and some mild stiffness of the right extremity continued pain All medications have been reviewed Active Medications Acetaminophen (Acetaminophen Tab 325 Mg Tab) 650 mg PO Q4HR PRN PRN Reason: Pain Scale 1 to 5 Last Admin: 09/04/22 23:46 Dose: 650 mg Hydrocodone Bitart/Acetaminophen (Hydrocodone/Apap 5-325mg 1 Each Tab) 1 each PO Q4HR PRN PRN Reason: Pain Last Admin: 09/05/22 06:44 Dose: 1 each Hydrocodone Bitart/Acetaminophen (Hydrocodone/Apap 5-325mg 1 Each Tab) 1 each PO Q4HR PRN PRN Reason: Pain Last Admin: 09/04/22 22:27 Dose: 1 each Allopurinol (Allopurinol 300 Mg Tab) 300 mg PO DAILY [facility] Last Admin: 09/05/22 08:06 Dose: 300 mg Apixaban (Apixaban 5 Mg Tab) 5 mg PO BID [facility]; Protocol Last Admin: 09/05/22 08:05 Dose: 5 mg Ascorbic Acid (Ascorbic Acid 500 Mg Tab) 1,000 mg PO DAILY [facility] Last Admin: 09/05/22 08:05 Dose: 1,000 mg Atorvastatin Calcium (Atorvastatin 20 Mg Tab) 20 mg PO HS [facility] Last Admin: 09/04/22 20:13 Dose: 20 mg Benzocaine/Menthol (Benzocaine/Menthol Lozeng 1 Each Lozenge) 1 each MUCOUS MEM Q4HR PRN PRN Reason: Sore Throat Cholecalciferol (Cholecalciferol 25 Mcg (1000 Iu) Tablet) 75 mcg PO DAILY [facility] Last Admin: 09/05/22 08:06 Dose: 75 mcg Hydromorphone HCl (Hydromorphone 1 Mg/Ml 1 Ml Syringe) 1 mg IVP Q4HR PRN PRN Reason: Pain Last Admin: 09/05/22 08:04 Dose: 1 mg Hydromorphone HCl (Hydromorphone 1 Mg/Ml 1 Ml Syringe) 1 mg IVP Q4HR PRN PRN Reason: Pain Last Admin: 09/04/22 04:13 Dose: 1 mg Hydromorphone HCl (Hydromorphone 0.5 Mg/0.5 Ml Syringe) 0.5 mg IVP Q4HR PRN PRN Reason: Pain Potassium Chloride/Dextrose/Sod Cl (D5%-1/2ns-Kcl 20 Meq/L Iv Solution) 1,000 mls @ 100 mls/hr IV .Q10H [facility] Last Admin: 09/05/22 06:09 Dose: Not Given Sodium Chloride (Saline 0.9%) 1,000 mls @ 75 mls/hr IV .[id number] [facility] Last Admin: 09/05/22 04:22 Dose: Not Given Diltiazem HCl 125 mg/ Sodium (Chloride) 125 mls @ 5 mls/hr IV .Q24H [facility] Last Admin: 09/04/22 23:44 Dose: 10 mg/hr, 10 mls/hr Loratadine (Loratadine 10 Mg Tab) 10 mg PO DAILY [facility] Last Admin: 09/05/22 08:05 Dose: 10 mg Magnesium Hydroxide (Magnesium Hydroxide 2,400 Mg/10 Ml Cup) 2,400 mg PO DAILY PRN PRN Reason: Constipation Metformin HCl (Metformin 500 Mg Tab) 500 mg PO QAM [facility] Last Admin: 09/05/22 08:05 Dose: 500 mg Metformin HCl (Metformin 500 Mg Tab) 1,000 mg PO HS [facility] Last Admin: 09/04/22 20:13 Dose: 1,000 mg Metoprolol Tartrate (Metoprolol Tartrate 50 Mg Tab) 50 mg PO TID [facility] Last Admin: 09/05/22 08:06 Dose: 50 mg Multivitamins (Multivitamins, Thera 1 Each Tab) 1 each PO DAILY [facility] Last Admin: 09/05/22 08:05 Dose: 1 each Naloxone HCl (Naloxone 0.4 Mg/Ml 1 Ml Vial) 0.2 mg IV Q2M PRN PRN Reason: Opioid Reversal Ondansetron HCl (Ondansetron 4 Mg/2 Ml Vial) 4 mg IVP Q24HR PRN PRN Reason: Nausea And Vomiting Senna/Docusate Sodium (Sennosides-Docusate Sodium 1 Each Tab) 1 each PO DAILY [facility] Last Admin: 09/05/22 08:05 Dose: 1 each Zinc Sulfate (Zinc Sulfate 220 Mg Cap) 220 mg PO DAILY [facility] Last Admin: 09/05/22 08:05 Dose: 220 mg PHYSICAL EXAMINATION: GENERAL: The patient is alert and oriented x4, Well developed, well nourished. Obese HEENT: Pupils are round and equally reacting to light. EOMI. no scleral icterus. No conjunctival pallor. Normocephalic, atraumatic. No pharyngeal erythema. No thyromegaly. CARDIOVASCULAR: S1 and S2 muffled, irregular PULMONARY: diminished breath sounds bilaterally with no wheezing or rhonchi no ac. ABDOMEN: soft. Nontender on exam. obese. non-distended, normoactive bowel sounds. No palpable organomegaly. MUSCULOSKELETAL: No joint swelling or deformity. EXTREMITIES: No cyanosis, clubbing, or pedal edema. Right hip tender on palpation, positive Refill and pulses noted of the lower extremities NEUROLOGICAL: Gross neurological examination did not reveal any focal deficits. Diffuse weakness SKIN: No rashes. Assessment: Right femoral neck fracture with varus angulation, status post mechanical fall while mis-stepping at [employer] off the curb Status post right hip hemiarthroplasty, postop day 1 Atrial fibrillation/flutter with 2 to 1 conduction, new onset Borderline diabetes mellitus hemoglobin A1c 6.5 History of hypertension History of hyperlipidemia Mild leukocytosis, most likely reactive Obesity with a BMI of 34.6 GI prophylaxis DVT prophylaxis Full code Plan: Recommend to continue with current medications and management per orthopedic services. Patient underwent right hip hemiarthroplasty with orthopedics, postop day 1 Patient developed heart rates into the [id number] and noted to be in atrial fibrillation/flutter, recommend continued telemetry monitoring, cardiology following an EF noted to be 55-60% and is continued on IV Cardizem working on weaning and adjustments to metoprolol being made. Patient is on oral anticoagulation Home medications reviewed and resumed and patient noted to have elevated blood sugars, hemoglobin A1c was noted to be 6.5 and with borderline pre-diabetes Recommend telemetry monitoring Recommend a.m. labs Recommend incentive spirometer at least 10 times every hour while awake wean off oxygen of 2 L as patient does not wear this at home Weight-bear as tolerated per orthopedic recommendations and will have physical therapy evaluate the patient We will continue to monitor closely and follow along with orthopedics during hospitalization. Thank you kindly for this consultation. The impression and plan of care has been dictated by Savi Collazo, nurse practitioner as directed. Dr. Jennei MD I have performed a history and examination and MDM of this patient, discussed the same with the dictator, and agree with the dictator's assessment and plan as written ,documented as a scribe. Based on total visit time, I have performed more than 50% of the visit. Any additional findings or plans will be noted. Objective - Vital Signs Vital signs: Vital Signs Temp 97.9 F 09/05/22 08:00 Pulse 114 H 09/05/22 08:00 Resp 18 09/05/22 08:00 BP 111/69 09/05/22 08:00 Pulse Ox 98 09/05/22 08:00 FiO2 Intake & Output 09/04/22 09/05/22 09/05/22 18:59 06:59 18:59 Intake Total 120 114.667 Output Total 400 Balance 120 -285.333 Intake: Intake, IV Titration 114.667 Amount Diltiazem 125 mg In 114.667 Sodium Chloride 0.9% 100 ml @ 10 MG/HR 10 mls/hr IV .[id number] [facility] Rx#: [id number] Oral 120 Output: Urine 400 Other: Voiding Method Urinal Urinal - Labs CBC & Chem 7: 09/05/22 08:25 09/05/22 08:25 Labs: Abnormal Lab Results - Last 24 Hours (Table) 09/04/22 09/04/22 09/04/22 Range/Units 11:54 17:00 20:12 WBC (3.8-10.6) k/uL Neutrophils # (1.3-7.7) k/uL POC Glucose (mg/dL) 163 H 170 H 188 H (70-110) mg/dL 09/05/22 09/05/22 Range/Units 05:58 08:25 WBC 13.2 H (3.8-10.6) k/uL Neutrophils # 8.8 H (1.3-7.7) k/uL POC Glucose (mg/dL) 180 H (70-110) mg/dL
[2022-09-06] MEDS: HYDROcodone/APAP 5-325MG 1 EACH TAB PO PRN ×5 (05:53→22:35)
[2022-09-06 06:09] LABS: Glucose,Whole Blood 175 mg/dL (70-110)
[2022-09-06] MEDS: SODIUM CHLORIDE 0.9% 1,000 ML IV SCH ×2 (06:48→08:37)
[2022-09-06] MEDS: SENNOSIDES-DOCUSATE SODIUM 1 EACH TAB PO SCH (07:45)
[2022-09-06] MEDS: APIXABAN 5 MG TAB PO SCH ×2 (07:45→20:22)
[2022-09-06] MEDS: METOPROLOL TARTRATE 50 MG TAB PO SCH ×2 (07:45→20:21)
[2022-09-06] MEDS: allopurinoL 300 MG TAB PO SCH (07:45)
[2022-09-06] MEDS: metFORMIN 500 MG TAB PO SCH ×2 (07:45→20:22)
[2022-09-06] MEDS: CHOLECALCIFEROL 25 MCG (1000 IU) TABLET PO SCH (07:45)
[2022-09-06] MEDS: MULTIVITAMINS, THERA 1 EACH TAB PO SCH (07:45)
[2022-09-06] MEDS: ZINC SULFATE 220 MG CAP PO SCH (07:45)
[2022-09-06] MEDS: LORATADINE 10 MG TAB PO SCH (07:45)
[2022-09-06] MEDS: ASCORBIC ACID 500 MG TAB PO SCH (07:45)
--- NOTE | 2022-09-06 08:27 | P.PN ---
Subjective Progress Note Date: 09/06/22 Principal diagnosis: Persistent atrial fibrillation The patient is a pleasant 67-year-old gentleman with a past medical history significant for diabetes and hypertension and dyslipidemia who was admitted to the hospital after he fell and fractured his right hip and underwent right hip surgery. Subsequently he developed atrial fibrillation which is known to him. Further investigation including an echocardiogram was performed and showed preserved biventricular systolic function was no significant valvular abnormalities. September 052021 The patient was seen and evaluated this morning. He remains in atrial fibrillation/flutter with overall controlled heart rate. He is on oral anticoagulation but he still on Cardizem IV at 10 mg per hour. His pressure has been marginal. He is also on beta lady and also he is on lisinopril. I'm going to try to wean the patient from the Cardizem IV and go up with the dose of beta lady and stop lisinopril in view of the margin a low blood pressure. Continue oral anticoagulation. September 062022 The patient was seen and evaluated this morning. He remains in atrial flutter/atrial fibrillation with overall controlled heart rate. But he is on small dose of Cardizem at 5 mg per hour. Beside that he is on metoprolol by mouth 50 mg 3 times a day. I'm going to increase the dose of metoprolol 200 mg by mouth twice a day and try to wean her from Cardizem IV that he is on oral anticoagulation. He continues to have pain in the hip where he underwent the surgery. Objective - Vital Signs Vital signs: Vital Signs Temp 98.9 F 09/06/22 07:54 Pulse 112 H 09/06/22 07:54 Resp 20 09/06/22 07:54 BP 144/79 09/06/22 07:54 Pulse Ox 90 L 09/06/22 07:54 FiO2 Intake & Output 09/05/22 09/06/22 09/06/22 18:59 06:59 18:59 Intake Total 243 125 10 Output Total 750 Balance 243 -625 10 Intake: IV 10 Invasive Line 1 10 Intake, IV Titration 125 125 Amount Diltiazem 125 mg In 125 125 Sodium Chloride 0.9% 100 ml @ 5 MG/HR 5 mls/hr IV .Q24H [facility] Rx#:[id number] Oral 118 Output: Urine 750 Other: Voiding Method Urinal Urinal # Voids 1 - Constitutional General appearance: Present: no acute distress - Respiratory Respiratory: bilateral: CTA - Cardiovascular Rhythm: irregularly irregular - Labs CBC & Chem 7: 09/05/22 08:25 09/05/22 08:25 Labs: Abnormal Lab Results - Last 24 Hours (Table) 09/05/22 09/05/22 09/05/22 Range/Units 08:25 08:25 11:40 WBC 13.2 H (3.8-10.6) k/uL Neutrophils # 8.8 H (1.3-7.7) k/uL Glucose 186 H (74-99) mg/dL POC Glucose (mg/dL) 159 H (70-110) mg/dL 09/05/22 09/05/22 09/06/22 Range/Units 16:38 20:21 06:07 WBC (3.8-10.6) k/uL Neutrophils # (1.3-7.7) k/uL Glucose (74-99) mg/dL POC Glucose (mg/dL) 171 H 176 H 175 H (70-110) mg/dL Assessment and Plan Assessment: Assessment Status post fall with right hip fracture Atrial fibrillation with overall controlled heart rate. This is new onset to the patient Diabetes and hypertension and dyslipidemia Plan Increase the dose of metoprolol 100 mg by mouth twice a day Try to wean the patient from Cardizem IV The echo was reviewed and showed normal ejection fraction
[2022-09-06] MEDS ORDERED: METOPROLOL TARTRATE 50 MG TAB PO ONE (08:30)
--- NOTE | 2022-09-06 10:16 | P.PN ---
Subjective Progress Note Date: 09/06/22 This is a 67-year-old male who is status post right hip hemiarthroplasty. This is postoperative day #3 and patient is seen and evaluated at bedside today. Patient states that his pain is currently controlled, but increases if he tries to sit in a chair. Patient states that he has been able to bear weight on the right lower extremity and walk around his hospital room. Patient states that he has not worked with physical therapy yet. Objective - Vital Signs Vital signs: Vital Signs Temp 98.9 F 09/06/22 07:54 Pulse 112 H 09/06/22 07:54 Resp 20 09/06/22 07:54 BP 144/79 09/06/22 07:54 Pulse Ox 90 L 09/06/22 07:54 FiO2 Intake & Output 09/05/22 09/06/22 09/06/22 18:59 06:59 18:59 Intake Total 243 125 10 Output Total 750 Balance 243 -625 10 Intake: IV 10 Invasive Line 1 10 Intake, IV Titration 125 125 Amount Diltiazem 125 mg In 125 125 Sodium Chloride 0.9% 100 ml @ 5 MG/HR 5 mls/hr IV .Q24H [facility] Rx#:[id number] Oral 118 Output: Urine 750 Other: Voiding Method Urinal Urinal # Voids 1 - Exam Vital signs are stable. Patient is in no acute distress and is alert and oriented 3. Calf is soft and nontender to palpation. Dressing is clean, dry, and intact. Patient has full foot and ankle motion without pain or difficulty. Sensation intact. Neurovascular status and circulatory status are intact. - Labs CBC & Chem 7: 09/06/22 08:45 09/06/22 08:45 Labs: Abnormal Lab Results - Last 24 Hours (Table) 09/05/22 09/05/22 09/05/22 Range/Units 08:25 11:40 16:38 Glucose 186 H (74-99) mg/dL POC Glucose (mg/dL) 159 H 171 H (70-110) mg/dL 09/05/22 09/06/22 Range/Units 20:21 06:07 Glucose (74-99) mg/dL POC Glucose (mg/dL) 176 H 175 H (70-110) mg/dL Assessment and Plan Assessment: A flutter/atrial fibrillation new-onset (1) S/P hip hemiarthroplasty Current Visit: Yes Status: Acute Code(s): Z96.649 - PRESENCE OF UNSPECIFIED ARTIFICIAL HIP JOINT SNOMED Code(s): 054352395 (2) Fall Current Visit: Yes Status: Acute Code(s): W19.XXXA - UNSPECIFIED FALL, INITIAL ENCOUNTER SNOMED Code(s): 5208506 (3) Femoral neck fracture Current Visit: Yes Status: Acute Code(s): S72.009A - FRACTURE OF UNSP PART OF NECK OF UNSP FEMUR, INIT SNOMED Code(s): 1786751 Plan: Continue routine postop care and pain control. Continue hip dislocation precautions and use of abductor pillow for 6 weeks. Continue anticoagulation per cardiology. Weightbearing as tolerated with a walker. Leave dressing in place for 7 days. Appreciate input from internal medicine and cardiology. Patient is being treated for new onset atrial fibrillation/A flutter. Anticipate discharge home with homecare in the next 24-48 hours after he is able to work with physical therapy and is cleared by cardiology. The patient is seen and examined at bedside. I agree with the above dictation. His pain is doing better but he still requiring IV pain medications as of last night and he is still having significant difficulty transitioning him out of bed and off the toilet. He does not seem safe yet for discharge home and hopefully can work with therapy to improve his mobility that further so that he can be safe for discharge home likely tomorrow or Wednesday. We'll see if he is able tolerate oral pain medications without IV His heart rate is better controlled and he is off the Cardizem drip. Hopefully he can continue to manage on oral medications
[2022-09-06 10:21] LABS: African American GFR (CKD) >90 (>60 ml/min/1.73 sqM); Anion Gap 12 mmol/L; Blood Urea Nitrogen 15 mg/dL (9-20); Calcium 9.2 mg/dL (8.4-10.2); Carbon Dioxide 26 mmol/L (22-30); Chloride 99 mmol/L (98-107); Glucose 166 mg/dL (74-99); Non-African American GFR(CKD) >90 (>60 ml/min/1.73 sqM); Sodium 137 mmol/L (137-145)
[2022-09-06 10:27] LABS: Basophils # (A) 0.1 k/uL (0-0.2); Basophils % (A) 1 %; Eosinophils # (A) 0.3 k/uL (0-0.7); Eosinophils % (A) 2 %; HCT 40.9 % (39.0-53.0); Lymphocytes # (A) 2.7 k/uL (1.0-4.8); Lymphocytes % (A) 21 %; MCH 33.1 pg (25.0-35.0); MCHC 34.2 g/dL (31.0-37.0); MCV 96.6 fL (80.0-100.0); Monocytes # (A) 0.9 k/uL (0-1.0); Monocytes % (A) 7 %; Neutrophils # (A) 8.9 k/uL (1.3-7.7); Neutrophils % (A) 68 %; Platelet Count 255 k/uL (150-450); RBC 4.24 m/uL (4.30-5.90); RDW 12.3 % (11.5-15.5); WBC 13.1 k/uL (3.8-10.6)
[2022-09-06 11:37] LABS: Glucose,Whole Blood 180 mg/dL (70-110)
[2022-09-06] MEDS: HYDROcodone/APAP 7.5-325MG 1 EACH TAB PO PRN ×4 (12:14→23:24)
[2022-09-06 16:43] LABS: Glucose,Whole Blood 133 mg/dL (70-110)
[2022-09-06 20:00] LABS: Glucose,Whole Blood 183 mg/dL (70-110)
[2022-09-06] MEDS: ATORVASTATIN 20 MG TAB PO SCH (20:22)
--- NOTE | 2022-09-07 01:30 | P.PN ---
Subjective Progress Note Date: 09/06/22 - Reason for Consult Consult date: 09/03/22 Medical management/surgical clearance for femoral neck fracture - History of Present Illness This is a 67-year-old male who was presented to the emergency department with reports of right hip pain status post mechanical fall missed stepping off the curb while at [employer] and fell landing on the hip. Patient denies any other feelings of dizziness, lightheadedness, feeling of passing out. Patient was admitted under orthopedic services for right femoral neck fracture tentatively scheduled for surgical clearance and surgical intervention of the hip. Patient reports he follows with Dr. Reddy in the outpatient setting with a past medical history of hypertension and high cholesterol. Patient reports he takes lisinopril for his blood pressure and denies any other significant medical hi story. Patient is obese with a BMI of 34.6 and reports to never smoking occasionally on social events uses alcohol and denies any other illicit drug use. Labs reviewed and an initial WBC was elevated at 14.1 most likely reactive with a hemoglobin of 15.8 and platelets were 234, sodium is 134 with a potassium of 4.3 and creatinine was 0.83. Blood sugar is elevated at 152 and patient denies any history of diabetes will obtain a hemoglobin A1c which is currently pending. Patient's chest x-ray on admission shows no acute pulmonary process and the lungs are clear, right hip and pelvis x-ray was done to evaluate for fracture showing a right femoral neck fracture with varus angulation. Patient admitted under orthopedic services for surgical intervention status post fall with femoral neck fracture. Medical management consultation for history of hyperlipidemia and hypertension. 09/04/2022 Patient is seen and evaluated follow-up and overnight started developing heart rate into the 130s/150s an EKG was obtained with atrial flutter and cardiology consulted. Patient was placed on telemetry monitoring and EKG was done along with chest x-ray and labs. WBC mildly elevated most likely reactive due to surgery as patient is status post right hemiarthroplasty postop day 1. Patient is continued on 2 L via nasal cannula for supplemental report will shortness of breath. Patient denies palpitations or chest pain. Patient is having some right hip pain with movement and due to his current heart rate and irregularity has not been up to work with physical therapy. Patient denies nausea or vomiting and is tolerating diet. Blood sugars mildly elevated and hemoglobin A1c will be obtained. 09/05/2022 Patient is seen and evaluated and follow-up with cardiology and orthopedics following. Patient is status post right hemiarthroplasty postop day #2. Patient continues to be in atrial fibrillation with flutter maintained on IV Cardizem and also oral anticoagulation. Blood pressures have been on the lower side and cardiology making adjustments to lisinopril and will continue beta blo cker adjustments. Currently weaning off IV Cardizem with adjustments to beta blockers and recommend to continue with telemetry monitoring. Wean FiO2 as tolerated as patient is maintained on 2 L and is now her oxygen at home. Patient denies shortness of breath and reports this is been on insulin surgery. Blood sugars mildly elevated recommend continue monitoring Accu-Cheks before meals and at bedtime and will use sliding scale as needed 09/06/2022 Patient is seen and evaluated in follow-up this morning and was on low-dose IV Cardizem at 5 mL per hour and is being discontinued and metoprolol PT adjusted to 100 mg twice daily with cardiology following. Patient is on anticoagulation and is status post right hip hemiarthroplasty. Patient continues to report pain and feels exhausted today. Patient is up and walking and continued walker use. Patient is afebrile and denies chest pain or worsening shortness of breath. Patient is maintaining oxygen saturations above 90% on room air. Encouraged incentive spirometer use at least 10 times every hour while awake. Patient is tolerating diet with no reports of nausea or vomiting noted and will continue monitoring blood sugars and use sliding scale as needed. Will adjust pain medications with orthopedics and recommended limiting IV narcotic use. Review of systems: Constitutional: No reports of fatigue, fever, or chills Cardiovascular: No reports of chest pain or palpitations Respiratory: No reports of shortness of breath or cough GI: No reports of nausea, vomiting, or diarrhea: Reports passing gas with a bowel movement today : No reports of dysuria or retention Neurovascular: reports of generalized weakness and some mild stiffness of the right extremity continued pain All medications have been reviewed Active Medications Acetaminophen (Acetaminophen Tab 325 Mg Tab) 650 mg PO Q4HR PRN PRN Reason: Pain Scale 1 to 5 Last Admin: 09/04/22 23:46 Dose: 650 mg Hydrocodone Bitart/Acetaminophen (Hydrocodone/Apap 5-325mg 1 Each Tab) 1 each PO Q4HR PRN PRN Reason: Pain Last Admin: 09/06/22 09:45 Dose: 1 each Hydrocodone Bitart/Acetaminophen (Hydrocodone/Apap 5-325mg 1 Each Tab) 1 each PO Q4HR PRN PRN Reason: Pain Last Admin: 09/04/22 22:27 Dose: 1 each Allopurinol (Allopurinol 300 Mg Tab) 300 mg PO DAILY [facility] Last Admin: 09/06/22 07:45 Dose: 300 mg Apixaban (Apixaban 5 Mg Tab) 5 mg PO BID [facility]; Protocol Last Admin: 09/06/22 07:45 Dose: 5 mg Ascorbic Acid (Ascorbic Acid 500 Mg Tab) 1,000 mg PO DAILY [facility] Last Admin: 09/06/22 07:45 Dose: 1,000 mg Atorvastatin Calcium (Atorvastatin 20 Mg Tab) 20 mg PO HS [facility] Last Admin: 09/05/22 20:02 Dose: 20 mg Benzocaine/Menthol (Benzocaine/Menthol Lozeng 1 Each Lozenge) 1 each MUCOUS MEM Q4HR PRN PRN Reason: Sore Throat Cholecalciferol (Cholecalciferol 25 Mcg (1000 Iu) Tablet) 75 mcg PO DAILY [facility] Last Admin: 09/06/22 07:45 Dose: 75 mcg Cyclobenzaprine HCl (Cyclobenzaprine 5 Mg Tab) 5 mg PO BID PRN PRN Reason: Muscle Spasm Hydromorphone HCl (Hydromorphone 1 Mg/Ml 1 Ml Syringe) 1 mg IVP Q4HR PRN PRN Reason: Pain Last Admin: 09/06/22 07:46 Dose: 1 mg Hydromorphone HCl (Hydromorphone 1 Mg/Ml 1 Ml Syringe) 1 mg IVP Q4HR PRN PRN Reason: Pain Last Admin: 09/04/22 04:13 Dose: 1 mg Hydromorphone HCl (Hydromorphone 0.5 Mg/0.5 Ml Syringe) 0.5 mg IVP Q4HR PRN PRN Reason: Pain Sodium Chloride (Saline 0.9%) 1,000 mls @ 75 mls/hr IV .[id number] [facility] Last Admin: 09/06/22 08:37 Dose: Not Given Diltiazem HCl 125 mg/ Sodium (Chloride) 125 mls @ 5 mls/hr IV .Q24H [facility] Last Admin: 09/06/22 01:30 Dose: 5 mg/hr, 5 mls/hr Loratadine (Loratadine 10 Mg Tab) 10 mg PO DAILY [facility] Last Admin: 09/06/22 07:45 Dose: 10 mg Magnesium Hydroxide (Magnesium Hydroxide 2,400 Mg/10 Ml Cup) 2,400 mg PO DAILY PRN PRN Reason: Constipation Metformin HCl (Metformin 500 Mg Tab) 500 mg PO QAM [facility] Last Admin: 09/06/22 07:45 Dose: 500 mg Metformin HCl (Metformin 500 Mg Tab) 1,000 mg PO HS [facility] Last Admin: 09/05/22 20:02 Dose: 1,000 mg Metoprolol Tartrate (Metoprolol Tartrate 50 Mg Tab) 100 mg PO BID [facility] Multivitamins (Multivitamins, Thera 1 Each Tab) 1 each PO DAILY [facility] Last Admin: 09/06/22 07:45 Dose: 1 each Naloxone HCl (Naloxone 0.4 Mg/Ml 1 Ml Vial) 0.2 mg IV Q2M PRN PRN Reason: Opioid Reversal Ondansetron HCl (Ondansetron 4 Mg/2 Ml Vial) 4 mg IVP Q24HR PRN PRN Reason: Nausea And Vomiting Senna/Docusate Sodium (Sennosides-Docusate Sodium 1 Each Tab) 1 each PO DAILY [facility] Last Admin: 09/06/22 07:45 Dose: 1 each Zinc Sulfate (Zinc Sulfate 220 Mg Cap) 220 mg PO DAILY [facility] Last Admin: 09/06/22 07:45 Dose: 220 mg PHYSICAL EXAMINATION: GENERAL: The patient is alert and oriented x4, Well developed, well nourished. Obese HEENT: Pupils are round and equally reacting to light. EOMI. no scleral icterus. No conjunctival pallor. Normocephalic, atraumatic. No pharyngeal erythema. No thyromegaly. CARDIOVASCULAR: S1 and S2 muffled, irregular PULMONARY: diminished breath sounds bilaterally with no wheezing or rhonchi noted. ABDOMEN: soft. Nontender on exam. obese. non-distended, normoactive bowel sounds. No palpable organomegaly. MUSCULOSKELETAL: No joint swelling or deformity. EXTREMITIES: No cyanosis, clubbing, or pedal edema. Right hip tender on palpat ion, positive Refill and pulses noted of the lower extremities NEUROLOGICAL: Gross neurological examination did not reveal any focal deficits. Diffuse weakness SKIN: No rashes. Assessment: Right femoral neck fracture with varus angulation, status post mechanical fall while mis-stepping at [employer] off the curb Status post right hip hemiarthroplasty Atrial fibrillation/flutter with 2 to 1 conduction, new onset Borderline diabetes mellitus hemoglobin A1c 6.5 History of hypertension History of hyperlipidemia Mild leukocytosis, most likely reactive Obesity with a BMI of 34.6 GI prophylaxis DVT prophylaxis Full code Plan: Recommend to continue with current medications and management per orthopedic services. Patient underwent right hip hemiarthroplasty with orthopedics, postop day 3 Patient developed heart rates into the [id number] and noted to be in atrial fibrillation/flutter, recommend continued telemetry monitoring, cardiology following an EF noted to be 55-60% and is continued on IV Cardizem which is being discontinued today and adjustments to metoprolol being made. Patient is on oral anticoagulation Home medications reviewed and resumed and patient noted to have elevated blood sugars, hemoglobin A1c was noted to be 6.5 and with borderline pre-diabetes Recommend telemetry monitoring Discussed with the patient about pain management and have increased oral medications recommending limiting the use of IV pain medications Recommend incentive spirometer at least 10 times every hour while awake wean off oxygen of 2 L as patient does not wear this at home Weight-bear as tolerated per orthopedic recommendations and will have physical therapy evaluate the patient We will continue to monitor closely and follow along with orthopedics during hospitalization. Thank you kindly for this consultation. Possible discharge in the next 24-48 hours once cleared by cardiology. The impression and plan of care has been dictated by Savi Collazo, nurse practitioner as directed. Dr. Jennie MD I have performed a history and examination and MDM of this patient, discussed the same with the dictator, and agree with the dictator's assessment and plan as written ,documented as a scribe. Based on total visit time, I have performed more than 50% of the visit. Any additional findings or plans will be noted. Objective - Vital Signs Vital signs: Vital Signs Temp 98.9 F 09/06/22 07:54 Pulse 112 H 09/06/22 07:54 Resp 20 09/06/22 07:54 BP 144/79 09/06/22 07:54 Pulse Ox 90 L 09/06/22 07:54 FiO2 Intake & Output 09/05/22 09/06/22 09/06/22 18:59 06:59 18:59 Intake Total 243 125 10 Output Total 750 Balance 243 -625 10 Intake: IV 10 Invasive Line 1 10 Intake, IV Titration 125 125 Amount Diltiazem 125 mg In 125 125 Sodium Chloride 0.9% 100 ml @ 5 MG/HR 5 mls/hr IV .Q24H [facility] Rx#:[id number] Oral 118 Output: Urine 750 Other: Voiding Method Urinal Urinal # Voids 1 - Labs CBC & Chem 7: 09/06/22 08:45 09/06/22 08:45 Labs: Abnormal Lab Results - Last 24 Hours (Table) 09/05/22 09/05/22 09/05/22 Range/Units 08:25 11:40 16:38 Glucose 186 H (74-99) mg/dL POC Glucose (mg/dL) 159 H 171 H (70-110) mg/dL 09/05/22 09/06/22 Range/Units 20:21 06:07 Glucose (74-99) mg/dL POC Glucose (mg/dL) 176 H 175 H (70-110) mg/dL
[2022-09-07] MEDS: HYDROcodone/APAP 5-325MG 1 EACH TAB PO PRN ×2 (02:52→11:40)
[2022-09-07] MEDS: HYDROcodone/APAP 7.5-325MG 1 EACH TAB PO PRN ×3 (05:04→14:02)
[2022-09-07 05:59] LABS: Glucose,Whole Blood 165 mg/dL (70-110)
--- NOTE | 2022-09-07 06:57 | P.PN ---
Subjective Progress Note Date: 09/07/22 Principal diagnosis: Persistent atrial fibrillation The patient is a pleasant 67-year-old gentleman with a past medical history significant for diabetes and hypertension and dyslipidemia who was admitted to the hospital after he fell and fractured his right hip and underwent right hip surgery. Subsequently he developed atrial fibrillation which is known to him. Further investigation including an echocardiogram was performed and showed preserved biventricular systolic function was no significant valvular abnormalities. September 052021 The patient was seen and evaluated this morning. He remains in atrial fibrillation/flutter with overall controlled heart rate. He is on oral anticoagulation but he still on Cardizem IV at 10 mg per hour. His pressure has been marginal. He is also on beta lady and also he is on lisinopril. I'm going to try to wean the patient from the Cardizem IV and go up with the dose of beta lady and stop lisinopril in view of the margin a low blood pressure. Continue oral anticoagulation. September 062022 The patient was seen and evaluated this morning. He remains in atrial flutter/atrial fibrillation with overall controlled heart rate. But he is on small dose of Cardizem at 5 mg per hour. Beside that he is on metoprolol by mouth 50 mg 3 times a day. I'm going to increase the dose of metoprolol 200 mg by mouth twice a day and try to wean her from Cardizem IV that he is on oral anticoagulation. He continues to have pain in the hip where he underwent the surgery. 09/07/2022 The patient was seen and evaluated this morning. His hip pain has improved significantly. He remains in atrial fibrillation/flutter with overall controlled heart rate on the current dose of metoprolol. His of Cardizem IV. He is on oral anticoagulation. From a cardiovascular standpoint of view, the patient can be discharged home and follow-up with the cardiology service in the office. Objective - Vital Signs Vital signs: Vital Signs Temp 98.8 F 09/07/22 04:00 Pulse 92 09/07/22 04:00 Resp 20 09/07/22 04:00 BP 128/73 09/07/22 04:00 Pulse Ox 96 09/07/22 04:00 FiO2 Intake & Output 09/06/22 09/06/22 09/07/22 06:59 18:59 06:59 Intake Total 125 615 135 Output Total 750 350 300 Balance -625 265 -165 Intake: IV 15 15 Invasive Line 1 15 15 Intake, IV Titration 125 Amount Diltiazem 125 mg In 125 Sodium Chloride 0.9% 100 ml @ 5 MG/HR 5 mls/hr IV .Q24H [facility] Rx#:[id number] Oral 600 120 Output: Urine 750 350 300 Other: Voiding Method Urinal Urinal Urinal # Voids 1 1 - Constitutional General appearance: Present: no acute distress - Respiratory Respiratory: bilateral: CTA - Cardiovascular Rhythm: irregularly irregular - Labs CBC & Chem 7: 09/06/22 08:45 09/06/22 08:45 Labs: Abnormal Lab Results - Last 24 Hours (Table) 09/06/22 09/06/22 09/06/22 Range/Units 08:45 08:45 11:36 WBC 13.1 H (3.8-10.6) k/uL RBC 4.24 L (4.30-5.90) m/uL Neutrophils # 8.9 H (1.3-7.7) k/uL Glucose 166 H (74-99) mg/dL POC Glucose (mg/dL) 180 H (70-110) mg/dL 09/06/22 09/06/22 09/07/22 Range/Units 16:41 19:58 05:58 WBC (3.8-10.6) k/uL RBC (4.30-5.90) m/uL Neutrophils # (1.3-7.7) k/uL Glucose (74-99) mg/dL POC Glucose (mg/dL) 133 H 183 H 165 H (70-110) mg/dL Assessment and Plan Assessment: Assessment Status post fall with right hip fracture Atrial fibrillation with overall controlled heart rate. This is new onset to the patient Diabetes and hypertension and dyslipidemia Plan Continue the current dose of metoprolol and continue the current dose of oral anticoagulation The patient can be discharged home from the cardiac standpoint of view
[2022-09-07] MEDS: SODIUM CHLORIDE 0.9% 1,000 ML IV SCH (08:31)
[2022-09-07 08:36] VITALS: BP 145/78; PULSE 108; RESP 18; TEMP 98.6
[2022-09-07] MEDS: ASCORBIC ACID 500 MG TAB PO SCH (08:44)
[2022-09-07] MEDS: MULTIVITAMINS, THERA 1 EACH TAB PO SCH (08:44)
[2022-09-07] MEDS: CHOLECALCIFEROL 25 MCG (1000 IU) TABLET PO SCH (08:44)
[2022-09-07] MEDS: ZINC SULFATE 220 MG CAP PO SCH (08:44)
[2022-09-07] MEDS: SENNOSIDES-DOCUSATE SODIUM 1 EACH TAB PO SCH (08:44)
[2022-09-07] MEDS: METOPROLOL TARTRATE 50 MG TAB PO SCH (08:45)
[2022-09-07] MEDS: LORATADINE 10 MG TAB PO SCH (08:45)
[2022-09-07] MEDS: allopurinoL 300 MG TAB PO SCH (08:45)
[2022-09-07] MEDS: metFORMIN 500 MG TAB PO SCH (08:45)
[2022-09-07] MEDS: APIXABAN 5 MG TAB PO SCH (08:45)
--- NOTE | 2022-09-07 11:19 | P.DS ---
Providers Date of admission: 09/02/22 17:37 Attending physician: Lisa Castro Consults: 09/02/22 17:35 Consult Physician Urgent Consulting Provider: Marlon Cordova Consult Reason/Comments: Medical management and surgical clearance for hip hemiarthroplasty on Do you want consulting provider notified?: Yes 09/04/22 08:32 Consult Physician Stat Consulting Provider: Lyle Spicer Consult Reason/Comments: elevated heart rate, abn EKG Do you want consulting provider notified?: Yes Primary care physician: Cornel Reddy - Discharge Diagnosis(es) (1) S/P hip hemiarthroplasty Current Visit: Yes Status: Acute (2) Fall Current Visit: Yes Status: Acute (3) Femoral neck fracture Current Visit: Yes Status: Acute Hospital Course: The patient presented through the emergency room for his right hip pain status post fall on the day of admission as per their operative note. He sustained a right hip femoral neck fracture which was acute and traumatic due to a fall at [employer]. He has not had problems with his hip in the past. He was working full duty without any restrictions prior to this. He denied any problems with his hip in the past. He said he had some cardiac workup in the past but had been found to be stable. He denied any chest pain or shortness of breath he denied any weakness he denied any fevers chills. After evaluation in the emergency room was decided that he would be best served with undergoing surgical intervention for his right hip and he underwent surgery for his right hip the next morning as per his operative note for right hip hemiarthroplasty. The surgery went well without any evidence complication or issue. Physical Exam His pulses in the 80s to 90s. His pressure is stable. The incision site is clean dry and intact. There is no erythema no drainage. There is no purulence no evidence of infection. Abdomen soft and nontender. Chest has good excursion with deep inspiration and expiration. The patient has active and passive range of motion intact at the upper and lower extremities. There is no acute change in neurologic status. He is ambulating in his room with a walker. He was able get in and out of bed on his own today. Hospital Course Postoperative day #4 status post right hip hemiarthroplasty for his acute traumatic from a lack fracture due to fall On postoperative day 0 the patient had been brought up to the regular medical floor for postop evaluation and management. He was found be an increased rhythm to the 150s. He was undergoing evaluation and workup with medicine and cardiac service and was found to be in atrial fibrillation which was new onset for him. He was not having chest pain or shortness of breath. He was not having significant symptoms with his heart. He was having significant tachycardia and his pressures remaining stable. He was started on a Cardizem drip placed on telemetry monitoring and brought to the telemetry floor. He continued be managed in this regard for his cardiac issues. He remained essentially a symptomatically from his heart. He was not having shortness breath or chest pain. Medication made good treatment for him and he was able to stabilize his pulse and keep it regular. He was treated with other medications and blood pressure medications and anticoagulation. His Cardizem drip has been able to be dis continued as he is now on appropriate oral medications and maintaining his pressure and his pulse appropriately. He remains an atrophic ablation and on anticoagulation. In terms of his hip, he has been making good progress in terms of his mobilization and ambulation. He is putting full weightbearing and ambulate in the room with his walker. Making good progress with therapy. The wound has r emained clean and dry without any evidence of any infection. The patient has been making progress postoperatively in terms of his hip. They have completed the prophylactic antibiotics without any signs or symptoms of infection. The patient has been able to advance their diet, and is tolerating diet adequately. The pain was initially controlled with IV medications and is now controlled appropriately with oral medications. The patient has been able to increase their mobilization. The patient has progressed appropriately. He has been cleared by cardiology and medicine service for discharge with oral medications for his cardiac issues. In terms of his hip, I think they are in good stable condition for discharge today. They will be sent home with appropriate prescriptions. I answered their questions to the best of my ability in a language that they can understand and they are agreeable with the plan. They will follow up as directed with our service as well as with cardiology. Plan - Discharge Summary Discharge Rx Participant: No New Discharge Prescriptions: New Metoprolol Tartrate [Lopressor] 100 mg PO BID 30 Days #60 tab Acetaminophen Tab [Tylenol] 650 mg PO Q4HR PRN tab PRN Reason: Pain Scale 1 To 5 Apixaban [Eliquis] 5 mg PO BID 30 Days #60 tab Cyclobenzaprine [Flexeril] 5 mg PO BID PRN #20 tab PRN Reason: Muscle Spasm HYDROcodone/APAP 10-325MG [[place] 10-325] 1 tab PO Q4HR PRN 7 Days #42 tab PRN Reason: Pain Continue metFORMIN HCL [Glucophage] 500 mg PO QAM Cetirizine HCl [Zyrtec] 10 mg PO DAILY amLODIPine [Norvasc] 5 mg PO DAILY lisinopriL [Zestril] 20 mg PO DAILY Aspirin EC [Ecotrin Low Dose] 81 mg PO HS metFORMIN HCL [Glucophage] 1,000 mg PO HS Atorvastatin [Lipitor] 20 mg PO HS Cholecalciferol (Vitamin D3) [Vitamin D3 (3000 Iu)] 75 mcg PO DAILY Zinc Sulfate 50 mg PO DAILY Ascorbic Acid [Vitamin C] 1,000 mg PO DAILY Multivitamins, Thera [Multivitamin (formulary)] 1 tab PO DAILY allopurinoL 300 mg PO DAILY Discharge Medication List Aspirin EC [Ecotrin Low Dose] 81 mg PO HS 06/03/19 [History] Cetirizine HCl [Zyrtec] 10 mg PO DAILY 06/03/19 [History] amLODIPine [Norvasc] 5 mg PO DAILY 06/03/19 [History] lisinopriL [Zestril] 20 mg PO DAILY 06/03/19 [History] metFORMIN HCL [Glucophage] 500 mg PO QAM 06/03/19 [History] Ascorbic Acid [Vitamin C] 1,000 mg PO DAILY 09/02/22 [History] Atorvastatin [Lipitor] 20 mg PO HS 09/02/22 [History] Cholecalciferol (Vitamin D3) [Vitamin D3 (3000 Iu)] 75 mcg PO DAILY 09/02/22 [History] Multivitamins, Thera [Multivitamin (formulary)] 1 tab PO DAILY 09/02/22 [History] Zinc Sulfate 50 mg PO DAILY 09/02/22 [History] allopurinoL 300 mg PO DAILY 09/02/22 [History] metFORMIN HCL [Glucophage] 1,000 mg PO HS 09/02/22 [History] Acetaminophen Tab [Tylenol] 650 mg PO Q4HR PRN tab 09/07/22 [Rx] Apixaban [Eliquis] 5 mg PO BID 30 Days #60 tab 09/07/22 [Rx] Cyclobenzaprine [Flexeril] 5 mg PO BID PRN #20 tab 09/07/22 [Rx] HYDROcodone/APAP 10-325MG [[place] 10-325] 1 tab PO Q4HR PRN 7 Days #42 tab 09/07/22 [Rx] Metoprolol Tartrate [Lopressor] 100 mg PO BID 30 Days #60 tab 09/07/22 [Rx] Follow up Appointment(s)/Referral(s): Jas Marrero MD [STAFF PHYSICIAN] - 1 Week Cornel Reddy MD [Primary Care Provider] - 1 Week [facility] Visiting Nurse, [NON-STAFF] - As Needed Discharge Disposition: HOME WITH HOME HEALTH SERVICES
--- NOTE | 2022-09-07 11:22 | P.EN ---
Patient will require a wheelchair on discharge to complete ADLs and longer traveling to doctor's appointments due to recent right hip arthroplasty and also new onset atrial fibrillation as patient continues to have difficulty with ambulation. Patient is able to self propel and does have help at the home for somebody to propel him.
[2022-09-07 11:37] LABS: Glucose,Whole Blood 161 mg/dL (70-110)
[2022-09-07 13:20] VITALS: BMI 34.5
--- NOTE | 2022-09-07 14:50 | P.PN ---
Subjective Progress Note Date: 09/07/22 - Reason for Consult Consult date: 09/03/22 Medical management/surgical clearance for femoral neck fracture - History of Present Illness This is a 67-year-old male who was presented to the emergency department with reports of right hip pain status post mechanical fall missed stepping off the curb while at [employer] and fell landing on the hip. Patient denies any other feelings of dizziness, lightheadedness, feeling of passing out. Patient was admitted under orthopedic services for right femoral neck fracture tentatively scheduled for surgical clearance and surgical intervention of the hip. Patient reports he follows with Dr. Reddy in the outpatient setting with a past medical history of hypertension and high cholesterol. Patient reports he takes lisinopril for his blood pressure and denies any other significant medical hi story. Patient is obese with a BMI of 34.6 and reports to never smoking occasionally on social events uses alcohol and denies any other illicit drug use. Labs reviewed and an initial WBC was elevated at 14.1 most likely reactive with a hemoglobin of 15.8 and platelets were 234, sodium is 134 with a potassium of 4.3 and creatinine was 0.83. Blood sugar is elevated at 152 and patient denies any history of diabetes will obtain a hemoglobin A1c which is currently pending. Patient's chest x-ray on admission shows no acute pulmonary process and the lungs are clear, right hip and pelvis x-ray was done to evaluate for fracture showing a right femoral neck fracture with varus angulation. Patient admitted under orthopedic services for surgical intervention status post fall with femoral neck fracture. Medical management consultation for history of hyperlipidemia and hypertension. 09/04/2022 Patient is seen and evaluated follow-up and overnight started developing heart rate into the 130s/150s an EKG was obtained with atrial flutter and cardiology consulted. Patient was placed on telemetry monitoring and EKG was done along with chest x-ray and labs. WBC mildly elevated most likely reactive due to surgery as patient is status post right hemiarthroplasty postop day 1. Patient is continued on 2 L via nasal cannula for supplemental report will shortness of breath. Patient denies palpitations or chest pain. Patient is having some right hip pain with movement and due to his current heart rate and irregularity has not been up to work with physical therapy. Patient denies nausea or vomiting and is tolerating diet. Blood sugars mildly elevated and hemoglobin A1c will be obtained. 09/05/2022 Patient is seen and evaluated and follow-up with cardiology and orthopedics following. Patient is status post right hemiarthroplasty postop day #2. Patient continues to be in atrial fibrillation with flutter maintained on IV Cardizem and also oral anticoagulation. Blood pressures have been on the lower side and cardiology making adjustments to lisinopril and will continue beta blo cker adjustments. Currently weaning off IV Cardizem with adjustments to beta blockers and recommend to continue with telemetry monitoring. Wean FiO2 as tolerated as patient is maintained on 2 L and is now her oxygen at home. Patient denies shortness of breath and reports this is been on insulin surgery. Blood sugars mildly elevated recommend continue monitoring Accu-Cheks before meals and at bedtime and will use sliding scale as needed 09/06/2022 Patient is seen and evaluated in follow-up this morning and was on low-dose IV Cardizem at 5 mL per hour and is being discontinued and metoprolol PT adjusted to 100 mg twice daily with cardiology following. Patient is on anticoagulation and is status post right hip hemiarthroplasty. Patient continues to report pain and feels exhausted today. Patient is up and walking and continued walker use. Patient is afebrile and denies chest pain or worsening shortness of breath. Patient is maintaining oxygen saturations above 90% on room air. Encouraged incentive spirometer use at least 10 times every hour while awake. Patient is tolerating diet with no reports of nausea or vomiting noted and will continue monitoring blood sugars and use sliding scale as needed. Will adjust pain medications with orthopedics and recommended limiting IV narcotic use. 09/07/2022 Patient is seen in follow-up today cardiology has cleared the patient for discharge with outpatient follow-up. Patient will continue on metoprolol and has been anticoagulated with eliquis. Patient blood sugars mildly elevated and will resume home medications and also blood pressure medications. Recommend close outpatient follow-up with Dr. Reddy his primary care provider along with cardiology and orthopedics in the outpatient setting. Patient with an incentive spirometer at the bedside encourage the patient to continue using at least 10 times every hour while awake. Patient up and working with physical therapy although continues to have pain and difficulty with ambulation and long distances and would likely benefit from a wheelchair. [facility] and prescription provided. Patient is medically stable and likely being discharged today. Patient is afebrile denies chest pain or palpitations. Patient denies shortness of breath. Patient denies nausea or vomiting and is tolerating diet. Review of systems: Constitutional: No reports of fatigue, fever, or chills Cardiovascular: No reports of chest pain or palpitations Respiratory: No reports of shortness of breath or cough GI: No reports of nausea, vomiting, or diarrhea: Reports passing gas and having bowel movements : No reports of dysuria or retention Neurovascular: reports of generalized weakness and some mild stiffness of the right extremity continued pain All medications have been reviewed PHYSICAL EXAMINATION: GENERAL: The patient is alert and oriented x4, Well developed, well nourished. Obese HEENT: Pupils are round and equally reacting to light. EOMI. no scleral icterus. No conjunctival pallor. Normocephalic, atraumatic. No pharyngeal erythema. No thyromegaly. CARDIOVASCULAR: S1 and S2 muffled, irregular PULMONARY: diminished breath sounds bilaterally with no wheezing or rhonchi noted. ABDOMEN: soft. Nontender on exam. obese. non-distended, normoactive bowel sounds. No palpable organomegaly. MUSCULOSKELETAL: No joint swelling or deformity. EXTREMITIES: No cyanosis, clubbing, or pedal edema. Right hip tender on palpation, positive Refill and pulses noted of the lower extremities NEUROLOGICAL: Gross neurological examination did not reveal any focal deficits. Diffuse weakness SKIN: No rashes. Assessment: Right femoral neck fracture with varus angulation, status post mechanical fall while mis-stepping at [employer] off the curb Status post right hip hemiarthroplasty Atrial fibrillation/flutter with 2 to 1 conduction, new onset, currently rate controlled Borderline diabetes mellitus hemoglobin A1c 6.5 History of hypertension History of hyperlipidemia Mild leukocytosis, most likely reactive Obesity with a BMI of 34.6 GI prophylaxis DVT prophylaxis Full code Plan: Recommend to continue with current medications and management per orthopedic services. Patient underwent right hip hemiarthroplasty with orthopedics, postop day 4 Patient is currently rate controlled on metoprolol and anticoagulated with oral eliquis and has been cleared by cardiology recommending close outpatient follow- up Incentive spirometer at the bedside encourage the patient to continue using at least 10 times every hour while awake and bring home and continue to use Recommend following up with primary care provider Dr. Reddy to discuss new medications and new diagnoses Recommend heart healthy diabetic diet Recommend resume home medications and continue with cardiac medications and close outpatient follow-up within the next 1 week We will continue to monitor closely and follow along with orthopedics during hospitalization. Thank you kindly for this consultation. Patient is being discharged today and has been cleared by cardiology. Patient is medically stable for discharge The impression and plan of care has been dictated by Savi Collazo, nurse practitioner as directed. Dr. Art MD I have performed a history and examination and MDM of this patient, discussed the same with the dictator, and agree with the dictator's assessment and plan as written ,documented as a scribe. Based on total visit time, I have performed more than 50% of the visit. Any additional findings or plans will be noted. Objective - Vital Signs Vital signs: Vital Signs Temp 98.6 F 09/07/22 08:00 Pulse 108 H 09/07/22 08:00 Resp 18 09/07/22 08:00 BP 145/78 09/07/22 08:00 Pulse Ox 97 09/07/22 08:00 FiO2 Intake & Output 09/06/22 09/07/22 09/07/22 18:59 06:59 18:59 Intake Total 615 135 5 Output Total 350 300 Balance 265 -165 5 Intake: IV 15 15 5 Invasive Line 1 15 15 5 Oral 600 120 Output: Urine 350 300 Other: Voiding Method Urinal Urinal # Voids 1 - Labs CBC & Chem 7: 09/06/22 08:45 09/06/22 08:45 Labs: Abnormal Lab Results - Last 24 Hours (Table) 09/06/22 09/06/22 09/06/22 Range/Units 08:45 08:45 11:36 WBC 13.1 H (3.8-10.6) k/uL RBC 4.24 L (4.30-5.90) m/uL Neutrophils # 8.9 H (1.3-7.7) k/uL Glucose 166 H (74-99) mg/dL POC Glucose (mg/dL) 180 H (70-110) mg/dL 09/06/22 09/06/22 09/07/22 Range/Units 16:41 19:58 05:58 WBC (3.8-10.6) k/uL RBC (4.30-5.90) m/uL Neutrophils # (1.3-7.7) k/uL Glucose (74-99) mg/dL POC Glucose (mg/dL) 133 H 183 H 165 H (70-110) mg/dL
== END 2022-09-07 14:33 | disposition home health service (06) | DRG 522 ==
LOC: EC 13:02 → 4SSUR 17:37 → 3SCARD 09-04 11:43
PROVIDERS: ADMIT Orthopaedic Surgery Orthopaedic Surgery of the Spine; ATTEND Orthopaedic Surgery Orthopaedic Surgery of the Spine
PROC: 0SRR019 Replacement of Right Hip Joint, Femoral Surface with Metal Synthetic Substitute, Cemented, Open Approach (ICD-10-PCS; principal; 2022-09-03 11:45)
DX: S72.001A Fracture of unspecified part of neck of right femur, initial encounter for closed fracture (principal); I48.19 Other persistent atrial fibrillation; I48.92 Unspecified atrial flutter; E11.65 Type 2 diabetes mellitus with hyperglycemia; E78.00 Pure hypercholesterolemia, unspecified; D72.829 Elevated white blood cell count, unspecified; I10 Essential (primary) hypertension; E66.9 Obesity, unspecified; Z68.34 Body mass index [BMI] 34.0-34.9, adult; Z79.84 Long term (current) use of oral hypoglycemic drugs; Z79.899 Other long term (current) drug therapy; Z71.3 Dietary counseling and surveillance; Z91.02 Food additives allergy status; Z91.011 Allergy to milk products; Z91.010 Allergy to peanuts; Z91.018 Allergy to other foods; W00.0XXA Fall on same level due to ice and snow, initial encounter; Y92.512 Supermarket, store or market as the place of occurrence of the external cause
CPT/HCPCS: 36415; 64447; 71045; 73501; 73502; 80048; 80053; 83036; 84443; 85025; 85027; 85610; 85730; 88305; 88311; 93005; 93306; 94760; 96374; 96375; 96376; 99285

== ENCOUNTER 2022-09-24 05:52 | Day surgery (SDC) | payer MEDICARE, BC ==
[~2022-09-24 05:52] MED LIST: SODIUM CHLORIDE 0.9% 1,000 ML IV SCH
[2022-09-24 06:31] VITALS: TEMP 97
[2022-09-24 06:39] LABS: Glucose,Whole Blood 148 mg/dL (70-110)
[2022-09-24] MEDS ORDERED: LIDOCAINE 2% INJ 20 MG/ML (2 ML VIAL) ONE (07:15)
[2022-09-24] MEDS ORDERED: PROPOFOL 10 MG/ML 20 ML VIAL IV ONE (07:15)
[2022-09-24] MEDS ORDERED: BENZOCAINE SPRAY 1 CAN TOPICAL ONE (07:19)
--- NOTE | 2022-09-24 07:39 | P.PCN ---
Date of Procedure: 09/24/22 Description of Procedure: Indication: Evaluation of left atrial appendage Procedure Description: After explaining the procedure to the patient, it's risk and complications, blood pressure, heart rate and O2 saturation were monitored. The throat was sprayed with Cetacaine. Patient received sedation per anesthesia department. The probe was introduced into the esophagus without difficulty. Images were obtained. Following that, the probe was removed. There was no immediate complication. Findings: Left atrial size is dilated, left atrial appendage is normal. Left ventricle size is normal. Ejection fraction 50-55%. The aortic valve, mitral valve and tricuspid valve appears to be normal. Descending thoracic aorta appears to be normal. No pericardial effusion was noted. Contrast bubble study revealed no shunting across the intra-atrial septum. Doppler: Pulse wave and color Doppler were obtained, and revealed mild to moderate mitral with mild tricuspid regurgitation. There is no shunting by color Doppler study Conclusion: 1. Mildly dilated left atrium with normal appearance of the left atrial appendage 2. Normal left ventricle size with borderline normal systolic function 3. Mild to moderate mitral with mild tricuspid regurgitation 4. No shunting across the interatrial septum 5. No pericardial effusion Cardioversion: After obtaining sedate state and performing KARLA synchronized biphasic cardioversion using 150 J was performed with pentecostal of sinus mechanism, there was no immediate complication.
[2022-09-24] MEDS ORDERED: SODIUM CHLORIDE 0.9% 1,000 ML IV SCH (07:45)
[2022-09-24 08:20] VITALS: RESP 16
[2022-09-24 09:01] VITALS: BP 112/65; PULSE 78
[2022-09-24] MEDS ORDERED: metFORMIN 500 MG TAB PO SCH (21:00)
[2022-09-24] MEDS ORDERED: METOPROLOL TARTRATE 50 MG TAB PO SCH (21:00)
[2022-09-24] MEDS ORDERED: APIXABAN 5 MG TAB PO SCH (21:00)
[2022-09-24] MEDS ORDERED: ATORVASTATIN 20 MG TAB PO SCH (21:00)
[2022-09-25] MEDS ORDERED: metFORMIN 500 MG TAB PO SCH (09:00)
[2022-09-25] MEDS ORDERED: amLODIPine 5 MG TAB PO SCH (09:00)
[2022-09-25] MEDS ORDERED: MULTIVITAMINS, THERA 1 EACH TAB PO SCH (09:00)
[2022-09-25] MEDS ORDERED: ZINC SULFATE 220 MG CAP PO SCH (09:00)
[2022-09-25] MEDS ORDERED: lisinopriL 20 MG TAB PO SCH (09:00)
[2022-09-25] MEDS ORDERED: allopurinoL 300 MG TAB PO SCH (09:00)
== END 2022-09-24 09:19 | disposition home or self-care (01) ==
LOC: OR 05:52
PROVIDERS: ATTEND Internal Medicine Interventional Cardiology
DX: I08.1 Rheumatic disorders of both mitral and tricuspid valves (principal); I48.3 Typical atrial flutter; I10 Essential (primary) hypertension; E78.2 Mixed hyperlipidemia; E11.9 Type 2 diabetes mellitus without complications; Z79.84 Long term (current) use of oral hypoglycemic drugs; Z79.01 Long term (current) use of anticoagulants; Z79.02 Long term (current) use of antithrombotics/antiplatelets; Z79.82 Long term (current) use of aspirin; Z79.1 Long term (current) use of non-steroidal anti-inflammatories (NSAID); Z79.891 Long term (current) use of opiate analgesic; Z79.810 Long term (current) use of selective estrogen receptor modulators (SERMs); Z79.899 Other long term (current) drug therapy; Z79.52 Long term (current) use of systemic steroids
CPT/HCPCS: 92960; 93312; 93320; 93325; J2704; J2001

== ENCOUNTER → 2022-11-28 | Outpatient (CLI) | payer MEDICARE, BC ==
[2022-11-28 16:30] LABS: HCT 45.8 % (39.6-50.0); HGB 14.8 g/dL (13.0-17.0); MCH 29.7 pg (27.0-32.0); MCHC 32.3 g/dL (32.0-37.0); MCV 91.8 fL (80.0-97.0); Mean Platelet Volume 9.9 fL (9.5-12.2); NRBC Per 100 WBC 0 /100 WBCS (0.0-0.0); Platelet Count 283 X 10*3/uL (140-440); RBC 4.99 X 10*6/uL (4.40-5.60); RDW 12.9 % (11.5-14.5); WBC 8.18 X 10*3/uL (4.50-10.00)
[2022-11-28 17:39] LABS: African American GFR (CKD) 91.1 (60.0-200.0); Anion Gap 12.3 mmol/L (10.00-18.00); Blood Urea Nitrogen 13.7 mg/dL (9.0-27.0); Carbon Dioxide 24.7 mmol/L (20.0-27.5); Non-African American GFR(CKD) 78.6 (60.0-200.0); Potassium 5.1 mmol/L (3.5-5.5)
== END | disposition home or self-care (01) ==
LOC: LABPAT 10:48
PROVIDERS: ATTEND Internal Medicine Clinical Cardiac Electrophysiology
DX: Z01.812 Encounter for preprocedural laboratory examination (principal); I48.0 Paroxysmal atrial fibrillation
CPT/HCPCS: 80051; 82565; 84520; 85027

== ENCOUNTER 2022-12-03 10:19 | Day surgery (SDC) | payer MEDICARE, BC ==
[~2022-12-03 10:19] MED LIST changes: +DEXAMETHASONE SOD PHOSPHATE 4 MG/ML 1 ML VIAL IV ONE; +LIDOCAINE 1% (10MG/ML) FOR IV START INTRADERMA PRN; +ONDANSETRON 4 MG/2 ML VIAL IVP PRN; -SODIUM CHLORIDE 0.9% 1,000 ML IV SCH; +fentaNYL (PF) 50 MCG/ML 2 ML AMP IV PRN
[2022-12-03] MEDS: SODIUM CHLORIDE 0.9% 1,000 ML IV SCH (10:50)
[2022-12-03 10:51] LABS: Glucose,Whole Blood 139 mg/dL (70-110)
[2022-12-03] MEDS ORDERED: ROCURONIUM 10 MG/ML (5 ML VIAL) IV ONE (11:10)
[2022-12-03] MEDS ORDERED: fentaNYL (PF) 50 MCG/ML 2 ML AMP ONE (11:10)
[2022-12-03] MEDS ORDERED: ISOPROTERENOL 250 MCG/1.25 ML SYR IV ONE (11:10)
[2022-12-03] MEDS ORDERED: MIDAZOLAM 2 MG/2 ML VIAL ONE (11:10)
[2022-12-03] MEDS ORDERED: PHENYLEPHRINE-0.9% NACL SYG 1,000 MCG/10 ML SYRINGE ONE (11:10)
[2022-12-03] MEDS ORDERED: LIDOCAINE 2% INJ 20 MG/ML (2 ML VIAL) ONE (11:10)
[2022-12-03] MEDS ORDERED: PROPOFOL 10 MG/ML 20 ML VIAL IV ONE (11:10)
[2022-12-03] MEDS ORDERED: SUCCINYLCHOLINE CHLORIDE 200 MG/10 ML VIAL IV ONE (11:10)
[2022-12-03] MEDS ORDERED: HEPARIN SODIUM (1,000 UNIT/ML) 1,000 UNIT in SODIUM CHLORIDE 0.9% 1,000 ML IRRIGATION ONE (11:16)
[2022-12-03] MEDS ORDERED: HEPARIN SOD,PORK IN 0.45% NACL 25,000 UNIT in 0.45% NACL 1 250ML.BAG IV ONE (11:16)
[2022-12-03] MEDS ORDERED: LIDOCAINE 1% INJ 10MG/ML (20 ML MDV) ONE (11:32)
[2022-12-03] MEDS ORDERED: LIDOCAINE 1% INJ 10MG/ML (20 ML MDV) SQ ONE ×2 (11:46→11:47)
[2022-12-03] MEDS ORDERED: IOPAMIDOL-370 100ML BTL INJ ONE (12:24)
[2022-12-03] MEDS ORDERED: SODIUM CHLORIDE 0.9% 1,000 ML IV ONE ×2 (12:36→14:52)
[2022-12-03 15:07] LABS: Glucose,Whole Blood 149 mg/dL (70-110)
[2022-12-03] MEDS ORDERED: ACETAMINOPHEN TAB 325 MG TAB PO PRN (15:35)
[2022-12-03] MEDS ORDERED: ACETAMINOPHEN IV (For NPO) 1,000 MG/100 ML VIAL IVPB ONE (15:43)
--- NOTE | 2022-12-03 15:46 | P.EPPROC ---
- EP Procedure Note Electrophysiology Procedure Note: PROCEDURE A. fib ablation with pulmonary vein isolation Typical atrial flutter ablation DIAGNOSIS Atrial fibrillation, symptomatic, refractory to therapy RESULT No left atrial appendage mass seen on intracardiac echo Successful A. fib ablation/pulmonary vein isolation of all veins using cryo- ablation Complete entrance block in all 4 veins confirmed No evidence for phrenic nerve injury Typical atrial flutter ablation, successful and bidirectional block Esophageal deflection YES , right-sided esophagus Termination of atrial flutter with atrial pacing maneuvers PROCEDURE DETAILS Written informed consent prior to procedure. Patient brought to the EP lab. General anesthesia given. Heparin administered. A city maintained above 300 seconds Both groins prepped and draped per protocol and venous sheaths placed. Esophagus intubated, circa catheter for temperature monitoring an endoscope for possible esophageal deflection. Phrenic nerve monitoring performed. Esophageal temperature monitoring performed. Esophageal deflection performed if circa catheter overlapping with the balloon or circa temperature less than 27.5C Intracardiac echocardiography performed. Pericardium evaluated. Left atrial appendage evaluated. Left atrium evaluated along with pulmonary veins Transseptal catheterization performed under fluoroscopic guidance and intracardiac echo guidance Cryoablation sheath exchanged, balloon catheter along with achieve catheter placed in the left atrium. Pulmonary veins isolated in the following sequence: Left superior pulmonary vein followed by left inferior pulmonary vein, followed by right inferior pulmonary vein and lastly right superior pulmonary vein. Phrenic nerve stimulation along with capture thresholds within the SVC and right superior pulmonary vein to identify the phrenic nerve proximity to the cryo- balloon. Pulmonary veins isolated and confirmed with entrance and exit block. Phrenic nerve integrity confirmed at the end of the procedure Diagnostic catheters for the high right atrium, His bundle, coronary sinus placed. LA and RA pressures recorded RA pressure: 11/8 LA pressure: 15//9 Diagnostic EP study with coronary sinus pacing and recording Baseline measurements: Sinus node recovery times and 600, 504 100 ms were 1203, 1260 and 1132. Corresponding corrected sinus node recovery times were normal AV node Wenckebach block 360 ms No slow pathway conduction Ian response to Parahisian pacing Drug infusion was given wide open Isuprel. No atrial fibrillation induced. No atrial flutter induced Initially the patient was in typical atrial flutter. Entrainment was performed from the coronary sinus os. However this resulted in termination of typical atrial flutter The rest of the procedure and a diagnostic EP study is performed in sinus rhythm. Successful pulmonary isolation was performed. Following that successf ul atrial flutter ablation was performed A cavo tricuspid line of block was made. Isthmus conduction time greater than 180 ms. Bidirectional block proven Intracardiac echo was performed to delineate the isthmus. Intracardiac echo revealed a mid isthmus pouch, thick isthmus close to the eustachian ridge and a thick isthmus close to the tricuspid annulus Venous sheaths were removed and hemostasis assured with a closure device. Patient extubated and transferred to recovery PROCEDURES PERFORMED Diagnostic EP study CS pacing and recording Left and right transseptal catheterization 3-D mapping Intracardiac echocardiography Pulmonary vein isolation with transseptal and comprehensive EPS, [id number] Drug infusion, [id number] Extended procedure direction The patient had a very large right superior pulmonary vein. The first cryoablation with occlusion of the right superior pulmonary vein did not result in isolation of the PVP's. Second lesion was applied just outside the RS PV along the roof but this also did not result in isolation of the vein (2 min cryo) The catheter was repositioned and added different angulation, somewhat more inferiorly and with greater clockwise torque we were able to occlude the pulmonary vein once again with isolation within 27 seconds. This third cryoablation lesion was given for 3 minutes with complete isolation
[2022-12-03] MEDS ORDERED: ACETAMINOPHEN IV (For NPO) 1,000 MG in EMPTY BAG 1 BAG IVPB ONE (16:30)
[2022-12-03] MEDS: LACTATED RINGERS 1,000 ML IV SCH (16:58)
[2022-12-03 18:08] LABS: Glucose,Whole Blood 139 mg/dL (70-110)
[2022-12-03] MEDS: METOPROLOL TARTRATE 50 MG TAB PO SCH (20:31)
[2022-12-03] MEDS: APIXABAN 5 MG TAB PO SCH (20:31)
[2022-12-03] MEDS ORDERED: ATORVASTATIN 20 MG TAB PO SCH (21:00)
[2022-12-03 21:41] LABS: Glucose,Whole Blood 177 mg/dL (70-110)
[2022-12-04] MEDS: LACTATED RINGERS 1,000 ML IV SCH (05:20)
[2022-12-04] MEDS: SODIUM CHLORIDE 0.9% 1,000 ML IV SCH (05:20)
[2022-12-04 06:48] LABS: Basophils % (A) 0 %; Eosinophils # (A) 0.1 k/uL (0-0.7); Eosinophils % (A) 1 %; HCT 39.3 % (39.0-53.0); Lymphocytes # (A) 2.9 k/uL (1.0-4.8); Lymphocytes % (A) 28 %; MCH 30.4 pg (25.0-35.0); MCHC 33.2 g/dL (31.0-37.0); MCV 91.6 fL (80.0-100.0); Mean Platelet Volume 7.3; Monocytes # (A) 0.7 k/uL (0-1.0); Monocytes % (A) 6 %; Neutrophils # (A) 6.6 k/uL (1.3-7.7); Neutrophils % (A) 63 %; Platelet Count 196 k/uL (150-450); RBC 4.28 m/uL (4.30-5.90); RDW 13.3 % (11.5-15.5); WBC 10.5 k/uL (3.8-10.6)
[2022-12-04 06:52] LABS: African American GFR (CKD) >90 (>60 ml/min/1.73 sqM); Anion Gap 6 mmol/L; Blood Urea Nitrogen 16 mg/dL (9-20); Carbon Dioxide 24 mmol/L (22-30); Chloride 107 mmol/L (98-107); Glucose 136 mg/dL (74-99); Non-African American GFR(CKD) >90 (>60 ml/min/1.73 sqM); Potassium 4.2 mmol/L (3.5-5.1); Sodium 137 mmol/L (137-145)
[2022-12-04 07:19] VITALS: BP 109/71; RESP 17; TEMP 98.6
[2022-12-04 07:54] LABS: Glucose,Whole Blood 142 mg/dL (70-110)
[2022-12-04] MEDS ORDERED: allopurinoL 300 MG TAB PO SCH (09:00)
[2022-12-04] MEDS ORDERED: amLODIPine 5 MG TAB PO SCH (09:00)
[2022-12-04] MEDS ORDERED: lisinopriL 20 MG TAB PO SCH (09:00)
[2022-12-04] MEDS: METOPROLOL TARTRATE 50 MG TAB PO SCH (09:53)
[2022-12-04] MEDS: APIXABAN 5 MG TAB PO SCH (09:53)
--- NOTE | 2022-12-04 10:42 | P.DS ---
Providers Attending physician: Shilo Bolivar Primary care physician: [facility] Course: Patient is doing well. No chest discomfort dizziness lightheadedness or palpitations He is ambulating to the bathroom without any problems Heart sounds are normal Breath sounds No rhonchi no crackles No rub no S3 gallop Groins of healed well no hematoma no swelling Impression Persistent atrial fibrillation, symptomatic Atrial flutter with RVR, typical Status post pulmonary vein isolation, ablation of the atrial tissue in between the left superior and left inferior pulmonary veins, typical atrial flutter ablation . EKG today shows sinus mechanism normal ST segments normal MS interval Plan Patient is stable for cardio vascular standpoint and can go home Instructions were given Anticoagulation must continue Reduce metoprolol to 50 mrem twice daily Follow Dr. Spicer in 7-10 days Plan - Discharge Summary Discharge Rx Participant: No New Discharge Prescriptions: No Action RX: metFORMIN HCL [Glucophage] 500 mg PO QAM RX: Cetirizine HCl [Zyrtec] 10 mg PO DAILY RX: amLODIPine [Norvasc] 5 mg PO DAILY RX: lisinopriL [Zestril] 20 mg PO DAILY RX: metFORMIN HCL [Glucophage] 1,000 mg PO HS RX: Atorvastatin [Lipitor] 20 mg PO HS RX: Metoprolol Tartrate [Lopressor] 100 mg PO BID 30 Days #60 tab RX: Acetaminophen Tab [Tylenol] 650 mg PO Q4HR PRN tab PRN Reason: Pain Scale 1 To 5 RX: Cholecalciferol (Vitamin D3) [Vitamin D3 (3000 Iu)] 75 mcg PO DAILY RX: Zinc Sulfate 50 mg PO DAILY RX: Ascorbic Acid [Vitamin C] 1,000 mg PO DAILY RX: Multivitamins, Thera [Multivitamin (formulary)] 1 tab PO DAILY RX: allopurinoL 300 mg PO DAILY RX: Apixaban [Eliquis] 5 mg PO BID 30 Days #60 tab HYDROcodone/APAP 10-325MG [Ruth 10-325] 1 tab PO Q4HR PRN 7 Days #42 tab PRN Reason: Pain Discharge Medication List RX: Cetirizine HCl [Zyrtec] 10 mg PO DAILY 06/03/19 [History] RX: amLODIPine [Norvasc] 5 mg PO DAILY 06/03/19 [History] RX: lisinopriL [Zestril] 20 mg PO DAILY 06/03/19 [History] RX: metFORMIN HCL [Glucophage] 500 mg PO QAM 06/03/19 [History] RX: Ascorbic Acid [Vitamin C] 1,000 mg PO DAILY 09/02/22 [History] RX: Atorvastatin [Lipitor] 20 mg PO HS 09/02/22 [History] RX: Cholecalciferol (Vitamin D3) [Vitamin D3 (3000 Iu)] 75 mcg PO DAILY 09/02/22 [History] RX: Multivitamins, Thera [Multivitamin (formulary)] 1 tab PO DAILY 09/02/22 [History] RX: Zinc Sulfate 50 mg PO DAILY 09/02/22 [History] RX: allopurinoL 300 mg PO DAILY 09/02/22 [History] RX: metFORMIN HCL [Glucophage] 1,000 mg PO HS 09/02/22 [History] HYDROcodone/APAP 10-325MG [Ruth 10-325] 1 tab PO Q4HR PRN 7 Days #42 tab 09/07/22 [Rx] RX: Acetaminophen Tab [Tylenol] 650 mg PO Q4HR PRN tab 09/07/22 [Rx] RX: Apixaban [Eliquis] 5 mg PO BID 30 Days #60 tab 09/07/22 [Rx] RX: Metoprolol Tartrate [Lopressor] 100 mg PO BID 30 Days #60 tab 09/07/22 [Rx]
[2022-12-04 10:48] VITALS: PULSE 60
[2022-12-04 11:54] LABS: Glucose,Whole Blood 148 mg/dL (70-110)
[2022-12-05] MEDS ORDERED: metFORMIN 500 MG TAB PO SCH ×2 (13:00→21:00)
== END 2022-12-04 13:25 | disposition home or self-care (01) ==
LOC: CATHEP 10:19 → 6NMEDSUR 14:17 → CATHEP 12-04 13:25
PROVIDERS: ATTEND Internal Medicine Clinical Cardiac Electrophysiology
DX: I48.92 Unspecified atrial flutter (principal); Z79.01 Long term (current) use of anticoagulants; Z79.84 Long term (current) use of oral hypoglycemic drugs; Z79.899 Other long term (current) drug therapy
CPT/HCPCS: 93623; 93656; 93657; 80048; 85025; C1759; C1894 ×2; C1769 ×4; C1760; C1730 ×2; C1893; C1733; C1766; C1732; J0690; J2001; J3010; J1644 ×2; J0131; Q9967